=== PATIENT | male | born 1945 | race Two or more races ===

== ENCOUNTER → 2016-08-14 | Outpatient (CLI) | payer OTHER, MEDICARE | LOC: SBRMNEURO 21:00 → MERGE 21:00 | PROVIDERS: ATTEND Psychiatry & Neurology Sleep Medicine | DX: G47.33 Obstructive sleep apnea (adult) (pediatric) (principal); G47.61 Periodic limb movement disorder ==

== ENCOUNTER 2017-05-24 09:23 | Day surgery (SDC) | payer OTHER, MEDICARE ==
[2017-05-24] MEDS ORDERED: NS 1,000 ML IV ONE (09:29)
[2017-05-24] MEDS ORDERED: ATROPINE SULFATE 1 MG/10 ML SYR IVP ONE (09:29)
--- NOTE | 2017-05-24 09:47 | CPEKG ---
Heart Rate: 77 RR Interval: 779 QRSD Interval: 172 QT Interval: 500 QTC Interval: 567 QRS [place]: -104 T Wave [place]: 68 EKG Severity - ABNORMAL ECG - EKG Impression: AFIB/FLUT AND V-PACED COMPLEXES EKG Impression: RIGHT BUNDLE BRANCH BLOCK Electronically Signed By: Dipesh Salazar 24-May-2017 17:39:39
[2017-05-24 10:07] LABS: INR 1.1 (0.83-1.16); PROTIME(PATIENT) 14.4 SEC (12.0-15.0)
--- NOTE | 2017-05-24 11:00 | PDANEPAE ---
ANE History of Present Illness 71 yo male with Afib and low energy for FRANCES/CV. ANE Past Medical History - Cardiovascular History Hx Hypertension: Yes Hx Arrhythmias: Yes Hx Chest Pain: Yes Hx Coronary Artery / Peripheral Vascular Disease: No Hx CHF / Valvular Disease: Yes Cardiovascular History Comment: AFib since February, on Eliquis one month with no missed doses. Amyloidosis with subsequent CHF, need for PM. - Pulmonary History Hx COPD: No Hx Asthma/Reactive Airway Disease: No Hx Recent Upper Respiratory Infection: No Hx Oxygen in Use at Home: No Hx Sleep Apnea: Yes Pulmonary History Comment: No recent cough/fever/colds. On CPAP with supplemental O2 at night. 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 Pt has recovered some renal function, no longer on dialysis , but does have CRI. - Liver History Hx Hepatic Disorders: No - GI History GERD: mild (GERD since starting Eliquis, on 75 mg Zantac daily to control) - Chronic Pain History Chronic Pain: No ANE Review of Systems Review of Systems: - Systems Constitutional: Reports: other (fatigue) Respiratory: Reports: no symptoms ANE Patient History - Allergies Allergies/Adverse Reactions: HORSERADISH Allergy (Uncoded 05/28/12 11:17) Rash - Home Medications Home Medications: Acyclovir 05/24/17 [Last Taken Unknown] Allopurinol 05/24/17 [Last Taken Unknown] Aspirin 81 mg PO DAILY 05/24/17 [Last Taken 05/24/17 07:30] Atorvastatin Calcium 05/24/17 [Last Taken Unknown] Budesonide 05/24/17 [Last Taken Unknown] Calcium Magnesium Caplet 05/24/17 [Last Taken Unknown] Carvedilol 18 mg PO BID 05/24/17 [Last Taken 05/24/17 07:30] Cholestyramine Packet 05/24/17 [Last Taken Unknown] Eliquis 2.5 mg PO BID 05/24/17 [Last Taken 05/24/17 07:30] Furosemide 05/24/17 [Last Taken Unknown] Glucosamine Chondroitin Caplet 05/24/17 [Last Taken Unknown] Levoxyl 05/24/17 [Last Taken Unknown] Mirtazapine 05/24/17 [Last Taken Unknown] Multivitamins 05/24/17 [Last Taken Unknown] [place]-3 Acid Ethyl Esters 05/24/17 [Last Taken Unknown] Potassium Cl 05/24/17 [Last Taken Unknown] Tamsulosin HCl 05/24/17 [Last Taken Unknown] Zolpidem Tartrate 05/24/17 [Last Taken Unknown] Zyrtec 05/24/17 [Last Taken Unknown] - NPO status NPO Status: no food or drink >8 hours (except for a sip of water with meds at 7: 30 AM) - Anes Hx Anes Hx: no prior problems - Smoking Hx Smoking Status: Never smoked Marijuana use: No - Alcohol Use Alcohol Use: None - Family Anes Hx Family Anes Hx: neg - N/A ANE Labs/Vital Signs - Labs Result Diagrams: 05/24/17 09:49 - Vital Signs Blood Pressure: 140/82 Heart Rate: 66 O2 Sat (%): 97 Height: 165 cm Weight: 76.2 kg ANE Physical Exam - Airway Neck exam: FROM Mallampati Score: Class 2 - Cardiovascular Cardiovascular: irregularly irregular - ASA Status ASA Status: III ANE Anesthesia Plan Anesthesia Plan: GA with mask Total IV Anesthesia: Yes
[2017-05-24 11:02] VITALS: BP 140/82; PULSE 66; O2SAT 97
[2017-05-24] MEDS ORDERED: LIDOCAINE 2% 5 ML SDV ONE (11:04)
[2017-05-24] MEDS ORDERED: PROPOFOL 200 MG/20 ML VIAL ONE (11:04)
--- NOTE | 2017-05-24 11:13 | PDHPUP ---
History & Physical Update H&P update statement: This history and physical update is based on an assessment of the patient which was completed after admission or registration (within 24 hours), but prior to the surgery/procedure. H&P update: H&P reviewed & patient examined H&P changes: patient had one episode of hematemesis. Went to see GI MD as out- pt and GI bleed ruled out. No change in cardiac symptoms. Plan for FRANCES/CV today with [employer] Pacer rep here to interrogate PPM jacqueline-procedure.
[2017-05-24] MEDS ORDERED: NALOXONE HCL 0.4 MG/ML INJ IVP PRN (11:33)
--- NOTE | 2017-05-24 11:37 | POSTANESTH ---
Post Anesthetic Evaluation Cardiovascular Status: Similar to Pre-Op Cond Respiratory Status: Normal, Stable Level of Consciousness/Mental Status: Can Participate in Eval, Mildly Sleepy, Arousable (At 12:06.) Pain Control: Adequate, Prn Tx Ordered Nausea/Vomiting Control: Adequate, Prn Tx Ordered Complications Possibly Related to Anesthesia: None Noted
--- NOTE | 2017-05-24 11:42 | PDTEE1 ---
FRANCES Cardioversion Procedure Procedure: electrical cardioversion, transesophageal echo Indications: atrial fibrillation, cardiomyopathy Consent: signed and in chart Anticoagulation: eliquis Procedural Details: Pads were placed in anterior-posterior position. FRANCES probe was advanced and standard images obtained. There is no evidence of left atrial or left atrial appendage thrombus. see seperate FRANCES procedure noted CV: in initially paced rhythm with underlying atrial flutter. After FRANCES showed no cardiac clot, 250J synchronized converted immediately to NSR. Then some PACs and into atach. Still sedated. Given ATP on his device and converted him to NSR and staying in sinus now. PLAN: 1)no change in current meds. 2)f/u New consult- RYAN-Zuleyma next Sunday in [place] to discuss future treatment of his aflutter and atach both ablation and anti-arrhythmics. 3)f/u CHF-[facility] in 3-4 weeks. Synchronized cardioversion attempt #1: other (250 J synchronized) Results: normal sinus rhythm Conclusions: successful FRANCES cardioversion
--- NOTE | 2017-05-24 11:45 | CPEKG ---
Heart Rate: 62 RR Interval: 968 P-R Interval: 200 QRSD Interval: 180 QT Interval: 512 QTC Interval: 520 P [place]: 15 QRS [place]: 106 T Wave [place]: -66 EKG Severity - ABNORMAL ECG - EKG Impression: ATRIAL-SENSED VENTRICULAR-PACED RHYTHM EKG Impression: PACING IS NEW IN COMPARISON TO PRIOR Electronically Signed By: Dipesh Salazar 24-May-2017 17:40:07
--- NOTE | 2017-05-24 13:49 | CPR ---
[f rep st] NONINVASIVE CARDIAC PROCEDURE REPORT DATE OF PROCEDURE: 05/24/2017 PROCEDURE PERFORMED: Electrical cardioversion. INDICATIONS: Known cardiac amyloidosis with atrial fibrillation and increased tiredness. CONSENT: Signed. Risks, benefits, and alternatives discussed with patient and his . They wishe d to proceed. DESCRIPTION OF PROCEDURE AND RESULTS: The patient immediately beforehand had a transesophageal echo which demonstrated a stable LVEF at 30% with moderate mitral regurgitation, but no clot or thrombus s een in any of the 4 cardiac chambers or left atrial appendage. He was in a paced rhythm with underly ing A-flutter with a heart rate of 80 beats per minute with a blood pressure of 148/80. While deeply sedated, he had a 250 joule synchronized shock which converted him back to sinus rhythm. Of note, t he [employer] pacer rep was here during the whole procedure and we were monitoring his pacemaker with a wand over the chest. After about 4-5 minutes in sinus rhythm, he started having PACs and went back into an atrial tachycardia. We burst paced him at 150 beats per minute which converted him back int o sinus rhythm. He was still asleep during this. He remained in sinus rhythm through the rest of th e procedure. He awoke from the procedure with no new neurological deficits. COMPLICATIONS: None. FINAL IMPRESSION: Successful cardioversion of atrial flutter to sinus rhythm requiring 1 mechanical shock and 1 burst pacing. Note, the patient will be discharged home in an hour and continue on his home medications including r enal-dose Eliquis. He will see Dr. Brian Amor with our electrophysiology service of the [facility] in 1 week to talk about possible treatments including ablation and anti-arrhythmic, should he h ave recurrent atrial tachycardias. /[id number]/MODL
--- NOTE | 2017-05-25 12:56 | ECHO ---
[email or web address] [id number] Main: [phone] Fax: Transesophageal Echocardiography Name: KEKE CASSIDY MR#: [id number] Study Date: 05/24/2017 Study Time: 10:37 AM Date of : 1945 Age: 71 year(s) Height: ( ) Weight: ( ) BSA: Gender: Male Examination: FRANCES Indication: Pre Cardioversion Image Quality: Contrast: Requested by: Kale Nielsen Heart Rate: Rhythm: BP: / Procedure Staff Printed Forms Proofreader: Trevor Goncalves RDCS Reading Physician: Kale Nielsen MD Requesting Provider: Printed Forms Proofreader: Reading Physician: Kale Nielsen MD Requesting Provider: FRANCES Exam Details Measurements: Chambers Valvular Assessment AV/MV Valvular Assessment TV/PV Normal Normal Normal Name Value Range Name Value Range Name Value Range Visual EF: 30 % Additional Measurements: Findings: Left Ventricle: The ejection fraction is visually estimated to be 30 %. Right Ventricle: There is a pacemaker lead noted in the right ventricle. Left Atrium: An agitated saline study was performed and was negative for intracardiac shunting. Left Atrial Appendage: There is spontanious contrast with no evidence of thrombus in the left atrial appendage.. Mitral Valve: Moderate mitral valve regurgitation is present. Patient: KEKE CASSIDY Study Date: 05/24/2017 Page 1 of 2 10:37 AM Aortic Valve: The aortic valve is tri-leaflet. Mild aortic valve regurgitation is present. Tricuspid Valve: The tricuspid valve appears normal. Pulmonic Valve: Mild pulmonic valve regurgitation is noted. Aorta: The aorta is normal. Pericardium: No pericardial effusion. l1n (No Signature Object) Patient: KEKE CASSIDY Study Date: 05/24/2017 Page 2 of 2 10:37 AM [id number]
== END 2017-05-24 12:52 | disposition home or self-care (01) ==
LOC: FCATH 09:23
PROVIDERS: ATTEND Internal Medicine Cardiovascular Disease
PROC: 5A2204Z Restoration of Cardiac Rhythm, Single (ICD-10-PCS; principal; 2017-05-24)
PROC: B245ZZ4 Ultrasonography of Left Heart, Transesophageal (ICD-10-PCS; principal; 2017-05-24)
DX: I48.91 Unspecified atrial fibrillation (principal); I48.92 Unspecified atrial flutter; I43 Cardiomyopathy in diseases classified elsewhere; E85.4 Organ-limited amyloidosis; R53.83 Other fatigue; R06.02 Shortness of breath; K92.0 Hematemesis; N18.9 Chronic kidney disease, unspecified; G47.33 Obstructive sleep apnea (adult) (pediatric); I50.9 Heart failure, unspecified; I25.10 Atherosclerotic heart disease of native coronary artery without angina pectoris; E03.9 Hypothyroidism, unspecified; Z82.49 Family history of ischemic heart disease and other diseases of the circulatory system; Z79.83 Long term (current) use of bisphosphonates; Z95.810 Presence of automatic (implantable) cardiac defibrillator
CPT/HCPCS: J0461; J2704

== ENCOUNTER → 2017-06-25 | Outpatient (CLI) | payer OTHER, MEDICARE | LOC: FIMAGING 10:46 | PROVIDERS: ATTEND Internal Medicine Cardiovascular Disease | DX: J40 Bronchitis, not specified as acute or chronic (principal); I51.7 Cardiomegaly; Z95.0 Presence of cardiac pacemaker ==

== ENCOUNTER 2017-07-12 06:48 | Day surgery (SDC) | payer OTHER, MEDICARE ==
[2017-07-12] MEDS ORDERED: ATROPINE SULFATE 1 MG/10 ML SYR IVP ONE (06:52)
[2017-07-12] MEDS ORDERED: NS 500 ML IV ONE (06:52)
[2017-07-12] MEDS ORDERED: BENZOCAINE UNIT DOSE SPRAY HURRICAINE MM ONE (06:52)
[2017-07-12] MEDS ORDERED: fentaNYL 100 MCG/2 ML INJ IVP ONE (06:52)
[2017-07-12] MEDS ORDERED: MIDAZOLAM 2 MG/2 ML VIAL IVP ONE (06:52)
--- NOTE | 2017-07-12 07:06 | CPEKG ---
Heart Rate: 66 RR Interval: 909 P-R Interval: 252 QRSD Interval: 210 QT Interval: 528 QTC Interval: 554 P [place]: 166 QRS [place]: 102 T Wave [place]: -29 EKG Severity - ABNORMAL ECG - EKG Impression: ATRIAL-SENSED VENTRICULAR-PACED COMPLEXES EKG Impression: FIRST DEGREE AV BLOCK EKG Impression: No significant change from May 24, 2017 Electronically Signed By: Bandar Marks 12-Jul-2017 11:00:18
[2017-07-12 07:39] LABS: INR 2.37 (0.83-1.16); PROTIME(PATIENT) 25.9 SEC (12.0-15.0)
--- NOTE | 2017-07-12 08:27 | PDHPUP ---
History & Physical Update H&P update statement: This history and physical update is based on an assessment of the patient which was completed after admission or registration (within 24 hours), but prior to the surgery/procedure. H&P update: H&P reviewed & patient examined, no change in patient's condition since H&P completed
[2017-07-12] MEDS ORDERED: PROPOFOL 200 MG/20 ML VIAL ONE (09:52)
[2017-07-12] MEDS ORDERED: PERFLUTREN LIPID MICROSPHERES 1.1 MG/ML VIAL IV ONE (10:08)
--- NOTE | 2017-07-12 10:20 | EPPROC ---
Electrophysiology Procedure Note: The pt's FRANCES demonstrated very low flow in the appendage and LA clot could not be definitively ruled out.Hence it was decided to hold off on CV. Will reschedule after four weeks of consistent INR.
[2017-07-12] MEDS ORDERED: NALOXONE HCL 0.4 MG/ML INJ IVP PRN (10:27)
[2017-07-12] MEDS ORDERED: PROMETHAZINE HCL 25 MG/ML INJ IVP PRN (10:27)
[2017-07-12] MEDS ORDERED: ONDANSETRON 4 MG/2 ML VIAL IVP PRN (10:27)
[2017-07-12] MEDS ORDERED: fentaNYL 100 MCG/2 ML INJ IVP PRN (10:27)
--- NOTE | 2017-07-12 10:27 | PDANEPAE ---
ANE Past Medical History - Cardiovascular History Hx Hypertension: Yes Hx Arrhythmias: Yes Hx Chest Pain: Yes Hx Coronary Artery / Peripheral Vascular Disease: No Hx CHF / Valvular Disease: Yes Cardiovascular History Comment: AFib since February, on Eliquis one month with no missed doses. Amyloidosis with subsequent CHF, need for PM. - Pulmonary History Hx COPD: No Hx Asthma/Reactive Airway Disease: No Hx Recent Upper Respiratory Infection: No Hx Oxygen in Use at Home: No Hx Sleep Apnea: Yes Pulmonary History Comment: No recent cough/fever/colds. On CPAP with supplemental O2 at night. 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 Pt has recovered some renal function, no longer on dialysis , but does have CRI. - Liver History Hx Hepatic Disorders: No - Chronic Pain History Chronic Pain: No ANE Review of Systems Review of Systems: ANE Patient History - Allergies Allergies/Adverse Reactions: HORSERADISH Allergy (Uncoded 05/28/12 11:17) Rash - Home Medications Home Medications: Acyclovir 05/24/17 [Last Taken Unknown] Allopurinol 05/24/17 [Last Taken Unknown] Aspirin 81 mg PO DAILY 05/24/17 [Last Taken 05/24/17 07:30] Atorvastatin Calcium 05/24/17 [Last Taken Unknown] Budesonide 05/24/17 [Last Taken Unknown] Calcium Magnesium Caplet 05/24/17 [Last Taken Unknown] Carvedilol 18 mg PO BID 05/24/17 [Last Taken 05/24/17 07:30] Cholestyramine Packet 05/24/17 [Last Taken Unknown] Eliquis 2.5 mg PO BID 05/24/17 [Last Taken 05/24/17 07:30] Furosemide 05/24/17 [Last Taken Unknown] Glucosamine Chondroitin Caplet 05/24/17 [Last Taken Unknown] Levoxyl 05/24/17 [Last Taken Unknown] Mirtazapine 05/24/17 [Last Taken Unknown] Multivitamins 05/24/17 [Last Taken Unknown] [place]-3 Acid Ethyl Esters 05/24/17 [Last Taken Unknown] Potassium Cl 05/24/17 [Last Taken Unknown] Tamsulosin HCl 05/24/17 [Last Taken Unknown] Zolpidem Tartrate 05/24/17 [Last Taken Unknown] Zyrtec 05/24/17 [Last Taken Unknown] - Anes Hx Anes Hx: no prior problems - Smoking Hx Smoking Status: Never smoked ANE Labs/Vital Signs - Labs Result Diagrams: 07/12/17 07:15 - Vital Signs Height: 165 cm Weight: 74.8 kg ANE Physical Exam - Airway Mallampati Score: Class 2 Mouth exam: normal dental/mouth exam - Pulmonary Pulmonary: no respiratory distress, no rales or rhonchi, clear to auscultation - Cardiovascular Cardiovascular: regular rate and rhythym - ASA Status ASA Status: III ANE Anesthesia Plan Anesthesia Plan: GA with mask
--- NOTE | 2017-07-12 10:28 | POSTANESTH ---
Post Anesthetic Evaluation Cardiovascular Status: Similar to Pre-Op Cond Respiratory Status: Normal, Stable, Similar to Pre-op Cond. Level of Consciousness/Mental Status: Can Participate in Eval, Mildly Sleepy, Arousable Pain Control: Adequate, Prn Tx Ordered Nausea/Vomiting Control: Adequate, Prn Tx Ordered Complications Possibly Related to Anesthesia: None Noted
== END 2017-07-12 11:46 | disposition home or self-care (01) ==
LOC: FCATH 06:48
PROVIDERS: ATTEND Internal Medicine Cardiovascular Disease
PROC: B245ZZ4 Ultrasonography of Left Heart, Transesophageal (ICD-10-PCS; principal; 2017-07-12)
DX: I48.91 Unspecified atrial fibrillation (principal); E85.4 Organ-limited amyloidosis; I42.9 Cardiomyopathy, unspecified; R53.83 Other fatigue; R06.02 Shortness of breath; I50.22 Chronic systolic (congestive) heart failure; I44.0 Atrioventricular block, first degree; I25.10 Atherosclerotic heart disease of native coronary artery without angina pectoris; E03.9 Hypothyroidism, unspecified; N18.9 Chronic kidney disease, unspecified; I43 Cardiomyopathy in diseases classified elsewhere; G47.33 Obstructive sleep apnea (adult) (pediatric); I12.9 Hypertensive chronic kidney disease with stage 1 through stage 4 chronic kidney disease, or unspecified chronic kidney disease; Z79.01 Long term (current) use of anticoagulants; Z82.49 Family history of ischemic heart disease and other diseases of the circulatory system; Z95.810 Presence of automatic (implantable) cardiac defibrillator; Z53.09 Procedure and treatment not carried out because of other contraindication
CPT/HCPCS: J0461; J2704; Q9957

== ENCOUNTER 2017-07-26 06:18 | Day surgery (SDC) | payer OTHER, MEDICARE ==
[2017-07-26] MEDS ORDERED: ATROPINE SULFATE 1 MG/10 ML SYR IVP ONE (06:22)
[2017-07-26] MEDS ORDERED: BENZOCAINE UNIT DOSE SPRAY HURRICAINE MM ONE (06:22)
[2017-07-26] MEDS ORDERED: NS 500 ML IV ONE (06:22)
[2017-07-26] MEDS ORDERED: MIDAZOLAM 2 MG/2 ML VIAL IVP ONE (06:22)
[2017-07-26] MEDS ORDERED: fentaNYL 100 MCG/2 ML INJ IVP ONE (06:22)
--- NOTE | 2017-07-26 06:35 | CPEKG ---
Heart Rate: 71 RR Interval: 845 P-R Interval: 205 QRSD Interval: 188 QT Interval: 536 QTC Interval: 583 P [place]: 0 QRS [place]: 98 T Wave [place]: -53 EKG Severity - ABNORMAL ECG - EKG Impression: VENTRICULAR-PACED RHYTHM EKG Impression: PROLONGED QTc INTERVAL. Electronically Signed By: Kale Nielsen 26-Jul-2017 15:47:09
[2017-07-26 06:53] LABS: INR 1.85 (0.83-1.16); PROTIME(PATIENT) 21.4 SEC (12.0-15.0)
--- NOTE | 2017-07-26 08:22 | PDANEPAE ---
ANE History of Present Illness Patient presents for FRANCES, cardioversion ANE Past Medical History - Cardiovascular History Hx Hypertension: Yes Hx Arrhythmias: Yes Hx Chest Pain: Yes Hx Coronary Artery / Peripheral Vascular Disease: No Hx CHF / Valvular Disease: Yes Cardiovascular History Comment: AFib since February, on Eliquis one month with no missed doses. Amyloidosis with subsequent CHF, need for PM. - Pulmonary History Hx COPD: No Hx Asthma/Reactive Airway Disease: No Hx Recent Upper Respiratory Infection: No Hx Oxygen in Use at Home: No Hx Sleep Apnea: Yes Pulmonary History Comment: No recent cough/fever/colds. On CPAP with supplemental O2 at night. 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 Pt has recovered some renal function, no longer on dialysis , but does have CRI. - Liver History Hx Hepatic Disorders: No - Chronic Pain History Chronic Pain: No ANE Review of Systems Review of Systems: ANE Patient History - Allergies Allergies/Adverse Reactions: HORSERADISH Allergy (Uncoded 05/28/12 11:17) Rash - Home Medications Home medications: home medication list seen and reviewed Home Medications: Acyclovir 05/24/17 [Last Taken Unknown] Allopurinol 05/24/17 [Last Taken Unknown] Aspirin 81 mg PO DAILY 05/24/17 [Last Taken 05/24/17 07:30] Atorvastatin Calcium 05/24/17 [Last Taken Unknown] Budesonide 05/24/17 [Last Taken Unknown] Calcium Magnesium Caplet 05/24/17 [Last Taken Unknown] Carvedilol 18 mg PO BID 05/24/17 [Last Taken 05/24/17 07:30] Cholestyramine Packet 05/24/17 [Last Taken Unknown] Eliquis 2.5 mg PO BID 05/24/17 [Last Taken 05/24/17 07:30] Furosemide 05/24/17 [Last Taken Unknown] Glucosamine Chondroitin Caplet 05/24/17 [Last Taken Unknown] Levoxyl 05/24/17 [Last Taken Unknown] Mirtazapine 05/24/17 [Last Taken Unknown] Multivitamins 05/24/17 [Last Taken Unknown] [place]-3 Acid Ethyl Esters 05/24/17 [Last Taken Unknown] Potassium Cl 05/24/17 [Last Taken Unknown] Tamsulosin HCl 05/24/17 [Last Taken Unknown] Zolpidem Tartrate 05/24/17 [Last Taken Unknown] Zyrtec 05/24/17 [Last Taken Unknown] - NPO status NPO Status: no food or drink >8 hours - Smoking Hx Smoking Status: Never smoked ANE Labs/Vital Signs - Labs Result Diagrams: 07/26/17 06:35 - Vital Signs Height: 163 cm Weight: 74.8 kg ANE Physical Exam - Airway Neck exam: decreased ROM Mallampati Score: Class 2 Mouth exam: normal dental/mouth exam - Pulmonary Pulmonary: no respiratory distress - Cardiovascular Cardiovascular: irregularly irregular - ASA Status ASA Status: III ANE Anesthesia Plan Anesthesia Plan: GA with mask (RBA discussed)
--- NOTE | 2017-07-26 08:22 | PDGENHP ---
History & Physical Chief Complaint: fatigue History of Present Illness: atrial flutter, CRI, amyloidosis, JEB Pertinent Past, Social, Family History: assessed and unchanged Relevant Physical Exam: CTA no rales or rhonchii. S1S2 regular Cardiorespiratory Assessment: Unchanged and normal. OK to proceed
[2017-07-26] MEDS ORDERED: LIDOCAINE 1% 5 ML SDV ONE (08:23)
[2017-07-26] MEDS ORDERED: PROPOFOL 200 MG/20 ML VIAL ONE (08:24)
--- NOTE | 2017-07-26 08:45 | POSTANESTH ---
Post Anesthetic Evaluation Cardiovascular Status: Similar to Pre-Op Cond Respiratory Status: Similar to Pre-op Cond. Level of Consciousness/Mental Status: Can Participate in Eval, Mildly Sleepy, Arousable Pain Control: Adequate, Prn Tx Ordered Nausea/Vomiting Control: Adequate, Prn Tx Ordered Complications Possibly Related to Anesthesia: None Noted
--- NOTE | 2017-07-27 09:49 | EPPROC ---
Electrophysiology Procedure Note: Procedure: CV Indication: Atrial flutter Procedure: Pt sedated. FRANCES performed. SHARON clot ruled out. Pt converted to AP TURRET LATHE OPERATOR rhythm using 200J of synchronized DCCV. Conclusion: Successful CV
== END 2017-07-26 09:55 | disposition home or self-care (01) ==
LOC: FCATH 06:18
PROVIDERS: ATTEND Internal Medicine Cardiovascular Disease
PROC: B245ZZ4 Ultrasonography of Left Heart, Transesophageal (ICD-10-PCS; principal; 2017-07-26)
PROC: 5A2204Z Restoration of Cardiac Rhythm, Single (ICD-10-PCS; principal; 2017-07-26)
DX: I48.92 Unspecified atrial flutter (principal); R53.83 Other fatigue; N18.9 Chronic kidney disease, unspecified; I12.9 Hypertensive chronic kidney disease with stage 1 through stage 4 chronic kidney disease, or unspecified chronic kidney disease; E85.9 Amyloidosis, unspecified; G47.33 Obstructive sleep apnea (adult) (pediatric); I50.9 Heart failure, unspecified; Z79.01 Long term (current) use of anticoagulants; Z95.0 Presence of cardiac pacemaker
CPT/HCPCS: J0461; J2704

== ENCOUNTER 2017-12-21 06:50 | Day surgery (SDC) | payer OTHER, MEDICARE ==
[2017-12-21] MEDS ORDERED: ceFAZolin 2 GM/DEXTROSE 100 ML IV ONE (07:06)
[2017-12-21] MEDS ORDERED: LIDOCAINE 1% 2 ML INJ ID PRN (07:08)
[2017-12-21] MEDS ORDERED: LR 1,000 ML IV ONE (07:08)
[2017-12-21 07:48] LABS: PLATELET COUNT 177 10^3/uL (150-400)
[2017-12-21 07:55] LABS: INR 1.01 (0.83-1.16); PROTIME(PATIENT) 13.5 SEC (12.0-15.0)
--- NOTE | 2017-12-21 08:44 | PDANEPAE ---
ANE History of Present Illness L AVF ligation ANE Past Medical History - Cardiovascular History Hx Hypertension: Yes Hx Arrhythmias: Yes Hx Chest Pain: No Hx Coronary Artery / Peripheral Vascular Disease: No Hx CHF / Valvular Disease: Yes Hx Palpitations: No Cardiovascular History Comment: afib. cardiac amyloidosis. cardiomyopathy-low EF. chf. complete heart block. cad. followed by [facility] - Pulmonary History Hx COPD: No Hx Asthma/Reactive Airway Disease: No Hx Recent Upper Respiratory Infection: No Hx Oxygen in Use at Home: Yes O2 in Use at Home (L/minute): 2l at noc with cpap Hx Sleep Apnea: Yes Sleep Apnea Screening Result - Last Documented: Positive Pulmonary History Comment: janneth positive uses cpap- instructed pt to bring to hospital - Neurologic History Hx Cerebrovascular Accident: No Hx Seizures: No Hx Dementia: No - Endocrine History Hx Diabetes: No Endocrine History Comment: hypothyroidism. thyroid removed at 13 yo - Renal History Hx Renal Disorders: Yes Renal History Comment: hx of dialysis in 2012 for 8-9 months. CRI. ESRD - Liver History Hx Hepatic Disorders: No - Neurological & Psychiatric Hx Hx Neurological and Psychiatric Disorders: No - Cancer History Hx Cancer: Yes Cancer History Comment: [place]. multiple myeloma - Congenital Disorder History Hx Congenital Disorders: No - GI History Hx Gastrointestinal Disorders: Yes Gastrointestinal History Comment: colitis - Other Health History Other Health History: wears contacts. skin is fragile d/t coumadin - Chronic Pain History Chronic Pain: No - Surgical History Prior Surgeries: 07/26/17 FRANCES/ CV with Zuleyma. 07/12/17 FRANCES with Zuleyma. 05/24/17 FRANCES with Gia. 07/23/12 revision of AVF with Maurisio. 05/30/12 AVF creation with Maurisio ROJO Review of Systems Review of Systems: - Exercise capacity METS (RN): 3 METS - Pacemaker Pacemaker Type: Permanent Pacer/Defib Pacemaker Family Support Worker: [employer] Pacemaker Model: Adapta ADDR01 Pacemaker Mode: DDDR Pacemaker Set Rate: 60 Date Pacemaker Last Checked: 07/27/17 ANE Patient History - Allergies Allergies/Adverse Reactions: HORSERADISH Allergy (Uncoded 12/20/17 17:18) Rash - Home Medications Home medications: home medication list seen and reviewed Home Medications: Acyclovir 05/24/17 [Last Taken 12/20/17] Allopurinol 05/24/17 [Last Taken 12/21/17] Aspirin 05/24/17 [Last Taken 12/20/17] Atorvastatin Calcium 05/24/17 [Last Taken 12/21/17] Budesonide 05/24/17 [Last Taken 12/20/17] Calcium Magnesium Caplet 05/24/17 [Last Taken 12/20/17] Carvedilol 05/24/17 [Last Taken 12/20/17] Cholestyramine Packet 05/24/17 [Last Taken 12/19/17] Furosemide 05/24/17 [Last Taken 12/20/17] Glucosamine Chondroitin Caplet 05/24/17 [Last Taken 12/20/17] Levoxyl 05/24/17 [Last Taken 12/20/17] Mirtazapine 05/24/17 [Last Taken 12/20/17] Multivitamins 05/24/17 [Last Taken 12/20/17] Potassium Cl 05/24/17 [Last Taken 12/20/17] Tamsulosin HCl 05/24/17 [Last Taken 12/20/17] Zolpidem Tartrate 05/24/17 [Last Taken 12/20/17] Zyrtec 05/24/17 [Last Taken 12/20/17] Coumadin 07/26/17 [Last Taken 12/15/17] Amiodarone HCl 12/20/17 [Last Taken 12/21/17] Spironolactone 12/20/17 [Last Taken 12/20/17] Tylenol ES 500 mg (*) 12/20/17 [Last Taken Unknown] - NPO status NPO Status: no food or drink >8 hours NPO Since - Liquids (Date): 12/20/17 NPO Since - Liquids (Time): 20:20 NPO Since - Solids (Date): 12/20/17 NPO Since - Solids (Time): 19:00 - Anes Hx Anes Hx: no prior problems - Smoking Hx Smoking Status: Never smoked Marijuana use: No - Alcohol Use Alcohol Use: None - Family Anes Hx Family Anes Hx: none Family Hx Anesthesia Complications: none ANE Labs/Vital Signs - Labs Result Diagrams: 12/21/17 07:30 12/21/17 07:30 - Vital Signs Blood Pressure: 133/82 Heart Rate: 60 Respiratory Rate: 20 O2 Sat (%): 95 Height: 165.1 cm Weight: 77.111 kg ANE Physical Exam - Airway Neck exam: decreased ROM Mallampati Score: Class 2 Mouth exam: poor dentition - Pulmonary Pulmonary: inspiratory crackles - Cardiovascular Cardiovascular: regular rate and rhythym - ASA Status ASA Status: IV ANE Anesthesia Plan Anesthesia Plan: GA with mask, MAC Total IV Anesthesia: Yes
[2017-12-21] MEDS ORDERED: THROMBIN (BOVINE) 20,000 UNIT SPRAY TP ONE (08:50)
[2017-12-21] MEDS ORDERED: PROTAMINE SULFATE 50 MG/5 ML VIAL IVP ONE (08:51)
[2017-12-21] MEDS ORDERED: BUPIVACAINE 0.5% 30 ML SDV ONE (08:51)
[2017-12-21] MEDS ORDERED: PAPAVERINE HCL 60 MG/2 ML SDV ONE (08:51)
[2017-12-21] MEDS ORDERED: THROMBIN (BOVINE) 5,000 UNIT VIAL TP ONE (08:51)
[2017-12-21] MEDS ORDERED: PROPOFOL/EMULSION 500 MG/50 ML BOTTLE IV ONE (09:12)
[2017-12-21] MEDS ORDERED: fentaNYL 100 MCG/2 ML INJ ONE (09:12)
[2017-12-21] MEDS ORDERED: LIDOCAINE 2% 100 MG/5 ML SYR ONE ×2 (09:14)
[2017-12-21] MEDS ORDERED: LIDOCAINE 1% 300 MG/30 ML SDV ONE (09:20)
[2017-12-21] MEDS ORDERED: ACETAMINOPHEN 500 MG TAB PO PRN (09:49)
[2017-12-21] MEDS ORDERED: fentaNYL 100 MCG/2 ML INJ IVP PRN (09:49)
[2017-12-21] MEDS ORDERED: LABETALOL HCL 5 MG/ML 20 ML MDV IVP PRN (09:49)
[2017-12-21] MEDS ORDERED: ALBUTEROL 3 ML DEYVIAL IH PRN (09:49)
[2017-12-21] MEDS ORDERED: LR 500 ML IV PRN (09:49)
[2017-12-21] MEDS ORDERED: ONDANSETRON 4 MG/2 ML VIAL IVP PRN (09:49)
[2017-12-21] MEDS ORDERED: NALOXONE HCL 0.4 MG/ML INJ IVP PRN (09:49)
[2017-12-21] MEDS ORDERED: DEXAMETHASONE 4 MG/ML VIAL IVP PRN (09:49)
[2017-12-21] MEDS ORDERED: PHENYLEPHRINE HCL 100 MCG/ML SYR IVP PRN (09:49)
--- NOTE | 2017-12-21 10:02 | POSTOPPROG ---
Post Op Note Date of Operation: 12/21/17 Surgeon: Steven Forde Federal Mediation Commissioner: Haylee Anesthesiologist: Bhupinder Anesthesia: GET(General Endotracheal) Pre-op Diagnosis: Chronic kidney disease Post-op Diagnosis: same Indication: No longer needs dialysis Procedure: LUE AVF ligation Findings: absence of thrill in AVF after ligation Inf/Abcess present in the surg proc area at time of surgery?: No Depth: Superfical (Skin SQ) EBL: Minimal
[2017-12-21 11:17] VITALS: BP 132/88
--- NOTE | 2017-12-21 13:26 | POSTANESTH ---
Post Anesthetic Evaluation Cardiovascular Status: Normal, Stable Respiratory Status: Similar to Pre-op Cond., Tx Decrease in SpO2 Level of Consciousness/Mental Status: Can Participate in Eval Pain Control: Adequate, Prn Tx Ordered Nausea/Vomiting Control: Adequate, Prn Tx Ordered Complications Possibly Related to Anesthesia: None Noted
--- NOTE | 2017-12-24 12:23 | GOP ---
DATE OF OPERATION: 12/21/2017 SURGEON: Steven Forde MD STEEL WHEEL ENGRAVER: Michelle Leach NP ANESTHESIOLOGIST: Richi Roe MD PREOPERATIVE DIAGNOSIS: Renal failure and congestive heart failure. POSTOPERATIVE DIAGNOSIS: Renal failure and congestive heart failure. PROCEDURE PERFORMED: Ligation of left arm radiocephalic arteriovenous fistula. FINDINGS: RESOLUTION OF AVF FLOW INDICATIONS: The patient no longer needs dialysis and was thought to have congestive heart failure contributed to by the AV fistula flow. DESCRIPTION OF PROCEDURE: The patient was taken to the operating room where he received IV sedation and monitored anesthesia care by Dr. Roe. He was placed in the supine position with the left arm outstretched on an arm board. He was prepped and draped in the usual sterile fashion. A longitudinal incision was made through the previous old scar. Dissection was carried down, and the venous portion of the fistula was dissected free, back to almost to the anastomosis. At that point, the vein was encircled with a 2-0 silk and was doubly ligated with 2-0 silks with care to avoid any compromise to the radial artery flow. This did completely abolish the fistula flow. The wound was then closed with 4-0 Monocryl subcuticular sutures and infiltrated with 0.5% Marcaine. He tolerated the procedure well. Blood loss negligible. No complications. Taken to the recovery room in good condition. /[id number]/MODL MTDD
== END 2017-12-21 13:00 | disposition home or self-care (01) ==
LOC: FSGY 06:50
PROVIDERS: ATTEND Surgery
PROC: 05LY0CZ Occlusion of Upper Vein with Extraluminal Device, Open Approach (ICD-10-PCS; principal; 2017-12-21 08:30)
DX: I77.0 Arteriovenous fistula, acquired (principal); I13.0 Hypertensive heart and chronic kidney disease with heart failure and stage 1 through stage 4 chronic kidney disease, or unspecified chronic kidney disease; N18.9 Chronic kidney disease, unspecified; I50.9 Heart failure, unspecified; E85.9 Amyloidosis, unspecified; Z79.01 Long term (current) use of anticoagulants; Z95.0 Presence of cardiac pacemaker; G47.33 Obstructive sleep apnea (adult) (pediatric); E03.9 Hypothyroidism, unspecified
CPT/HCPCS: J0690; J1644; J2001; J2440; J2704; J2720; J3010

== ENCOUNTER 2018-03-03 12:58 | Emergency (ER) | payer OTHER, MEDICARE ==
--- NOTE | 2018-03-03 13:48 | EDPHY ---
H & P Stated Complaint: Left Calf Injury - Worried about infection - Personal History Current Tetanus Diphtheria and Acellular Pertussis (TDAP): Yes Tetanus Vaccine Date: <10 YRS - Medical/Surgical History Hx Asthma: No Hx Chronic Respiratory Disease: No Hx Diabetes: No Hx Cardiac Disease: Yes Hx Renal Disease: Yes Hx Cirrhosis: No Hx Alcoholism: Yes Hx HIV/AIDS: No Hx Splenectomy or Spleen Trauma: No Other PMH: CHF, Pacemaker, CKD stage 4 - Social History Smoking Status: Never smoked Time Seen by Provider: 03/03/18 13:48 Constitutional: Initial Vital Signs Temperature (C) 97.9 F 03/03/18 13:06 Heart Rate 75 03/03/18 13:06 Respiratory Rate 18 03/03/18 13:06 Blood Pressure 122/82 H 03/03/18 13:06 O2 Sat (%) 100 03/03/18 13:06 O2 Delivery Mode Room Air Allergies/Adverse Reactions: HORSERADISH Allergy (Uncoded 12/20/17 17:18) Rash Home Medications: Medication Instructions Recorded Acyclovir 05/24/17 Allopurinol 05/24/17 Aspirin 05/24/17 Atorvastatin Calcium 05/24/17 Budesonide 05/24/17 Calcium Magnesium Caplet 05/24/17 Carvedilol 05/24/17 Cholestyramine Packet 05/24/17 Furosemide 05/24/17 Glucosamine Chondroitin Caplet 05/24/17 Levoxyl 05/24/17 Mirtazapine 05/24/17 Multivitamins 05/24/17 Potassium Cl 05/24/17 Tamsulosin HCl 05/24/17 Zolpidem Tartrate 05/24/17 Zyrtec 05/24/17 Coumadin 07/26/17 Amiodarone HCl 12/20/17 Spironolactone 12/20/17 Tylenol ES 500 mg (*) 12/20/17 Sulfamethox/Tmp 800/160 mg 1 tab PO BID #14 tab 03/03/18 [Bactrim Ds] Medical Decision Making Procedures: My involvement the care this patient is solely for procedure. Please see the note of the attending physician for all other aspects of care. I was asked evaluate this patient due to a left anterior garcía hematoma evacuation. PROCEDURE: Incision and Drainage Consent: Verbal Location: Left anterior garcía hematoma Length: 3 cm Complexity: Complex Anesthesia: Local. 0.25% marcaine with epinephrine. 7 mL Procedure description: After time-out and good anesthesia, the left garcía was prepped in common sterile fashion with chlorhexidine. Using sterile technique, I made a 3 cm incision and I was able to evacuate any extensive portion of the hematoma. This was copiously irrigated with sterile saline. A nonadherent dressing was replaced. Patient be placed on antibiotics by Dr. Sharp. Expressed: 20 mL hematoma. No purulence. Wound care: Daily as discussed Follow-up: 48 hr wound check. (Arthur Chandra) ED Course/Re-evaluation: CHIEF COMPLAINT: "Got in a fight with a car door and the car won" HISTORY OF PRESENT ILLNESS: The patient is a 72 y/o male with a history of CHF , stage 4 kidney disease, and amyloidosis arriving with his complaining of left lower leg pain, redness, and open sore since getting struck by a car door accidentally 6 days ago. He is normally on Warfarin and developed a large hematoma at the site shortly after the injury. Since then, the swelling and pain worsened and he developed surrounding redness on his anterior leg and dependent ecchymosis in his foot. He saw his PCP on Sunday for this and stopped his anticoagulant at that time. The PCP attempted to draw off some fluid with a needle during that visit and discharged the patient on cephalexin with strict instruction to come to the ED if the redness, swelling, or pain worsened. He has completed 4 doses of this so far. The swelling improved, but the redness and pain has spread. He denies fever, chills, vomiting, or symptoms of systemic illness. REVIEW OF SYSTEMS: A comprehensive 10 system review of systems is otherwise negative aside from elements mentioned in the history of present illness and medical decision making. PHYSICAL EXAM: HR, BP, O2 Sat, RR. Temp noted General Appearance: Alert, well hydrated, appropriate, and non-toxic appearing. Head: Atraumatic without scalp tenderness or obvious injury Eyes: Pupils equal, round, reactive to light and accommodation, EOMI, no trauma , no injection. Nose: Atraumatic, no rhinorrhea, clear. Throat: Mucus membranes moist. Neck: Supple, nontender, no lymphadenopathy. Respiratory: No retractions, no distress, no wheezes, and no accessory muscle use. Lungs are clear to auscultation bilaterally. Cardiovascular: Regular rate and rhythm, no murmurs, rubs, or gallops. Good capillary refill all extremities. Gastrointestinal: Abdomen is soft, nontender, non-distended, no masses, no rebound, no guarding, no peritoneal signs. Musculoskeletal: Left lower anterior leg has large hematoma with area of fluctuance and induration, erythema, tenderness, and overlying and surrounding cellulitis. Normal active ROM of all extremities. Neurological: Alert, appropriate, and interactive. The patient has non-focal cranial nerves, motor, sensory, and cerebellar exam. Skin: No rashes, good turgor, no nodules on palpation. Past medical history: CHF, CKD stage 4, amyloidosis, normally on Warfarin. Past surgical history: Pacemaker Family history: Noncontributory Social history: at bedside. Retired. DIAGNOSTICS/PROCEDURES/CRITICAL CARE TIME: I&D performed by MERCEDEZ Chandra. DIFFERENTIAL DIAGNOSIS: The differential diagnosis for the patient's symptoms included but was not limited to infected hematoma, staph infection, strep infection, superficial clot, and sepsis. MEDICAL DECISION MAKING: This is a 72 y/o male with a history of CHF, CKD, and amyloidosis who presents with an infected hematoma of his left lower extremity. There is a large area of fluctuance and induration with overlying and surrounding cellulitis. Plan for I& D by MERCEDEZ Chandra. Patient will be discharged home on Bactrim in addition to his Keflex with referral to wound clinic for follow up. Strict return precautions discussed. He and his are comfortable with this plan. (Dante Sharp) - Data Points Medications Given: Discontinued Medications Trimethoprim/Sulfamethoxazole (Bactrim Ds) 1 ea PO EDNOW ONE PRN Reason: Protocol Stop: 03/03/18 14:03 Last Admin: 03/03/18 14:15 Dose: 1 ea Departure - Departure Disposition: Home, Routine, Self-Care Clinical Impression: Traumatic hematoma of lower leg with infection Qualifiers: Encounter type: initial encounter Laterality: left Qualified Code(s): S80.12XA - Contusion of left lower leg, initial encounter Cellulitis Qualifiers: Site of cellulitis: extremity Site of cellulitis of extremity: lower extremity Laterality: left Qualified Code(s): L03.116 - Cellulitis of left lower limb Condition: Good Instructions: Cephalexin (By mouth), Sulfamethoxazole/Trimethoprim (By mouth), Cellulitis (ED), Abscess (ED) Additional Instructions: 1. Continue taking the cephalexin you already have. 2. Start taking Bactrim in addition. Be sure to complete both of these antibiotics even if you feel better. 3. Use Tylenol and ibuprofen as directed on the packaging as needed for pain over the next few days. 4. Follow up with the wound care clinic in the next 3-4 days for reevaluation. Keep bandage clean and dry in the mean time. 5. Return to the ED for any worsening of condition including severe pain, fever , chills, or other concerns. Referrals: RICHAR TAYLOR [Primary Care Provider] - As per Instructions [facility] [Clinic] - As per Instructions Prescriptions: Sulfamethox/Tmp 800/160 mg [Bactrim Ds] 1 tab PO BID #14 tab Report Scribed for: Dante Sharp Report Scribed by: Migdalia Bright Date of Report: 03/03/18 Time of Report: 14:10
[2018-03-03] MEDS ORDERED: SULFAMETHOX/TMP 800/160 MG 1 TAB PO ONE (14:02)
[2018-03-03] MEDS ORDERED: HYDROGEN PEROXIDE 236 ML BOTTLE TP ONE (14:12)
[2018-03-03 15:02] VITALS: BP 123/73
[2018-03-05] MEDS ORDERED: fentaNYL 100 MCG/2 ML INJ ONE ×2 (15:54→16:29)
[2018-03-05] MEDS ORDERED: MIDAZOLAM 2 MG/2 ML VIAL ONE (15:54)
== END 2018-03-03 15:01 | disposition home or self-care (01) ==
PROC: 0H9LXZZ Drainage of Left Lower Leg Skin, External Approach (ICD-10-PCS; principal; 2018-03-03)
DX: S80.12XA Contusion of left lower leg, initial encounter (principal); L03.116 Cellulitis of left lower limb; N18.4 Chronic kidney disease, stage 4 (severe); Z95.0 Presence of cardiac pacemaker
CPT/HCPCS: J2250; J3010

== ENCOUNTER 2018-03-05 07:14 | Inpatient (IN) | payer OTHER, MEDICARE ==
--- NOTE | 2018-03-05 07:30 | EDPHY ---
H & P Stated Complaint: L Leg swelling/redness Time Seen by Provider: 03/05/18 07:30 - Personal History Current Tetanus/Diphtheria Vaccine: Yes Current Tetanus Diphtheria and Acellular Pertussis (TDAP): Yes Tetanus Vaccine Date: <10 YRS - Medical/Surgical History Hx Asthma: No Hx Chronic Respiratory Disease: No Hx Diabetes: No Hx Cardiac Disease: Yes Hx Renal Disease: Yes Hx Cirrhosis: No Hx Alcoholism: Yes Hx HIV/AIDS: No Hx Splenectomy or Spleen Trauma: No Other PMH: CHF, Pacemaker, CKD stage 4, afib - Social History Smoking Status: Never smoked Constitutional: Initial Vital Signs Temperature (C) 36.5 C 03/05/18 07:18 Heart Rate 75 03/05/18 07:18 Respiratory Rate 16 03/05/18 07:18 Blood Pressure 103/73 03/05/18 07:18 O2 Sat (%) 93 03/05/18 07:18 O2 Delivery Mode Room Air Allergies/Adverse Reactions: HORSERADISH Allergy (Uncoded 03/05/18 07:18) Rash Home Medications: Medication Instructions Recorded Acyclovir [Zovirax 200 mg (*)] 200 mg PO BID #0 05/24/17 Allopurinol [Allopurinol 100 MG 100 mg PO DAILY #0 05/24/17 (*)] Aspirin [Aspirin 81mg (*)] 81 mg PO HS #0 05/24/17 Atorvastatin Calcium [Lipitor 10 10 mg PO HS #0 05/24/17 mg (*)] Budesonide [Budesonide EC] 6 mg PO DAILY@1630 #0 05/24/17 Carvedilol [Coreg (*)] 18.75 mg PO BIDMEAL #0 05/24/17 Cetirizine [ZyrTEC 10 mg (*)] 10 mg PO DAILY #0 05/24/17 Cholestyramine (with Sugar) 4 gm PO BID #0 05/24/17 [Cholestyramine Packet] Furosemide [Lasix 40 MG (*)] 40 mg PO TID #0 05/24/17 Glucosamine/Chondroitin 1 each PO DAILY #0 05/24/17 [Glucosamine/Chondroitin (*)] Levothyroxine [Synthroid 150 mcg 150 mcg PO DAILY06 #0 05/24/17 (*)] MIRTAZAPINE [Remeron 7.5 mg] 3.75 mg PO HS #0 05/24/17 Multivitamins [Multivitamin (*)] 1 each PO DAILY #0 05/24/17 Potassium Cl [Klor-Con 20 meq (*)] 20 meq PO DAILY #0 05/24/17 Tamsulosin HCl [Flomax 0.4 MG (*)] 0.4 mg PO HS #0 05/24/17 Zolpidem Tartrate [Ambien 5MG (*)] 5 mg PO HS #0 05/24/17 Warfarin Sodium [Coumadin 2.5MG 2.5 mg PO MWF #0 07/26/17 (*)] Acetaminophen [Tylenol ES 500 mg 1,000 mg PO DAILY PRN #0 12/20/17 (*)] Amiodarone HCl [Pacerone (*)] 200 mg PO DAILY #0 12/20/17 Spironolactone [Aldactone 25 MG 12.5 mg PO DAILY #0 12/20/17 (*)] Sulfamethox/Tmp 800/160 mg 1 tab PO BID #14 tab 03/03/18 [Bactrim Ds] Herbals/Supplements -Info Only 1 each PO DAILY 03/05/18 Ranitidine HCl [Zantac] 150 mg PO HS 03/05/18 Warfarin Sodium [Coumadin 2.5MG 1.25 mg PO SUTUTHSA 03/05/18 (*)] Medical Decision Making ED Course/Re-evaluation: CHIEF COMPLAINT: L garcía hematoma / cellulitis HISTORY OF PRESENT ILLNESS: This patient is an anticoagulated (Coumadin) 72 year old male with history of amyloidosis. One week ago, he struck his left lateral garcía on a car door and developed a large hematoma. Over then week, his swelling and pain worsened and he developed surrounding redness on his anterior leg and dependent ecchymosis in his foot. He was evaluated here in the ED 03/03 for this and the infected hematoma was evacuated and the patient placed on Bactrim. He [facility] up at [facility] yesterday and was referred to Dr. Lan, general surgeon, for further evaluation. He presents today to the ED for this. Of note, he discontinued his anticoagulant 03/01 as directed by his primary care provider. He denies fever, chills, vomiting, or symptoms of systemic illness. REVIEW OF SYSTEMS: A comprehensive 10 system review of systems is otherwise negative aside from elements mentioned in the history of present illness and medical decision making. PHYSICAL EXAM: HR, BP, O2 Sat, RR. Temp noted General Appearance: Alert, well hydrated, appropriate, and non-toxic appearing. Head: Atraumatic without scalp tenderness or obvious injury Eyes: Pupils equal, round, reactive to light and accommodation, EOMI, no trauma , no injection. Ears: Clear bilaterally, no perforation, normal landmarks Nose: Atraumatic, no rhinorrhea, clear. Throat: There is no erythema or exudates, no lesions, normal tonsils, mucus membranes moist. Neck: Supple, 2+ carotid upstroke, nontender, no lymphadenopathy. Respiratory: No retractions, no distress, no wheezes, and no accessory muscle use. Lungs are clear to auscultation bilaterally. Cardiovascular: Regular rate and rhythm, no murmurs, rubs, or gallops. Bilateral carotid, radial, dorsalis pedis, and posterior tibial pulses intact. Good capillary refill all extremities. Gastrointestinal: Abdomen is soft, nontender, non-distended, no masses, no rebound, no guarding, no peritoneal signs. Musculoskeletal: Area of erythema surrounding an area of eschar over the left lateral garcía. Normal active ROM of all extremities. Neurological: Alert, appropriate, and interactive. The patient has normal DTRs and non-focal cranial nerves, motor, sensory, and cerebellar exam. Skin: No rashes, good turgor, no nodules on palpation. Past medical history: CHF, CKD stage 4, amyloidosis, normally on Warfarin. Past surgical history: Pacemaker Family history: Noncontributory Social history: at bedside. Retired. DIFFERENTIAL DIAGNOSIS: The differential diagnosis for the patient's leg swelling included but was not limited to hypoalbuminemia, congestive heart failure, cor pulmonale, venous stasis, trauma, and DVT. MEDICAL DECISION MAKIN72 y/o male with history of amyloidosis, CKD, CHF presents with non-healing left garcía wound secondary to an accidental injury and subsequent large infected hematoma. The patient is generally anticoagaulated (Coumadin) but discontinued this four days ago as directed by his PCP. The leg swelling is reduced since I& D of the wound two days ago (when I initially evaluated this patient here in the emergency department), however the leg remains erythematous and there is an area of eschar in the center of the wound. Plan to consult with general surgery as recommended by the wound clinic. Plan for labs including CBC, chemistries. 07:[address] Lan, general surgeon. Plan to admit to medicine. The patient has been NPO since 19:00 yesterday with the exception of small sips of water this morning to take his regular medications. Plan to administer IV antibiotic for the patient's cellulitis. He has history of CKD and has been dialyzed in the past. His kidney function has improved recently however and his A/V fistula was closed by Dr. Forde several months ago. Given this and elevated creatinine today of 3.9, we will choose antibiotics carefully to preserve the patient's kidney function. Likely Ancef will provide good coverage. Plan to consult with infectious disease. 07:[address] Melton, infectious disease specialist. Plan to administer 2gm IV Ancef. 08:06 Dr. Lan at bedside. Patient will go to the OR around 14:00 for debridement. 08:17 Spoke with hospitalist service. Dr. Santoyo accepts admission for medical perioperative management. - Data Points Laboratory Results: Laboratory Results 03/05/18 07:35 03/05/18 07:35 03/05/18 03/05/18 03/05/18 07:58 07:44 07:35 WBC RBC Hgb POC Hgb 14.6 gm/dL gm/dL (13.7-17.5) Hct POC Hct 43 % % (40-51) MCV MCH MCHC RDW Plt Count MPV Neut % (Auto) Lymph % (Auto) [place] % (Auto) Eos % (Auto) Baso % (Auto) Nucleat RBC Rel Count Absolute Neuts (auto) Absolute Lymphs (auto) Absolute Monos (auto) Absolute Eos (auto) Absolute Basos (auto) Absolute Nucleated RBC Immature Gran % Immature Gran # ESR POC Sodium 140 mEq/L mEq/L (135-145) Sodium 139 mEq/L mEq/L (135-145) POC Potassium 3.9 mEq/L mEq/L (3.3-5.0) Potassium 4.3 mEq/L mEq/L (3.5-5.2) POC Chloride 104 mEq/L mEq/L (97-110) Chloride 105 mEq/L mEq/L (97-110) Carbon Dioxide 23 mEq/l mEq/l (22-31) Anion Gap 11 mEq/L mEq/L (6-14) POC BUN 47 mg/dL H mg/dL (7-23) BUN 59 mg/dL H mg/dL (7-23) Creatinine 3.7 mg/dL H mg/dL (0.7-1.3) POC Creatinine 3.9 mg/dL H mg/dL (0.7-1.3) Estimated GFR 16 Glucose 96 mg/dL mg/dL (70-100) POC Glucose 99 mg/dL mg/dL (70-100) Calcium 9.6 mg/dL mg/dL (8.5-10.4) C-Reactive Protein 68.2 mg/L H mg/L (<10.0) 03/05/18 07:35 WBC 8.75 10^3/uL 10^3/uL (3.80-9.50) RBC 4.38 10^6/uL L 10^6/uL (4.40-6.38) Hgb 13.9 g/dL g/dL (13.7-17.5) POC Hgb Hct 42.3 % % (40.0-51.0) POC Hct MCV 96.6 fL fL (81.5-99.8) MCH 31.7 pg pg (27.9-34.1) MCHC 32.9 g/dL g/dL (32.4-36.7) RDW 16.8 % H % (11.5-15.2) Plt Count 219 10^3/uL 10^3/uL (150-400) MPV 11.6 fL fL (8.7-11.7) Neut % (Auto) 74.6 % H % (39.3-74.2) Lymph % (Auto) 10.6 % L % (15.0-45.0) [place] % (Auto) 11.4 % % (4.5-13.0) Eos % (Auto) 1.7 % % (0.6-7.6) Baso % (Auto) 0.3 % % (0.3-1.7) Nucleat RBC Rel Count 0.0 % % (0.0-0.2) Absolute Neuts (auto) 6.52 10^3/uL H 10^3/uL (1.70-6.50) Absolute Lymphs (auto) 0.93 10^3/uL L 10^3/uL (1.00-3.00) Absolute Monos (auto) 1.00 10^3/uL H 10^3/uL (0.30-0.80) Absolute Eos (auto) 0.15 10^3/uL 10^3/uL (0.03-0.40) Absolute Basos (auto) 0.03 10^3/uL 10^3/uL (0.02-0.10) Absolute Nucleated RBC 0.00 10^3/uL 10^3/uL (0-0.01) Immature Gran % 1.4 % H % (0.0-1.1) Immature Gran # 0.12 10^3/uL H 10^3/uL (0.00-0.10) ESR 43 MM/HR H MM/HR (0-20) POC Sodium Sodium POC Potassium Potassium POC Chloride Chloride Carbon Dioxide Anion Gap POC BUN BUN Creatinine POC Creatinine Estimated GFR Glucose POC Glucose Calcium C-Reactive Protein Medications Given: Discontinued Medications Bupivacaine HCl (Sensorcaine 0.5% Vial) Confirm Administered Dose 30 ml .ROUTE .STK-MED ONE Stop: 03/05/18 15:48 Last Admin: 03/05/18 18:14 Dose: Not Given Sodium Chloride (Ns) 1,000 mls @ 0 mls/hr IV EDNOW ONE; Wide Open PRN Reason: Protocol Stop: 03/05/18 07:41 Last Admin: 03/05/18 08:03 Dose: 1,000 mls Cefazolin Sodium/Dextrose (Ancef) 100 mls @ 200 mls/hr IV EDNOW ONE PRN Reason: Protocol Stop: 03/05/18 08:16 Last Admin: 03/05/18 08:04 Dose: 100 mls Sodium Chloride (Ns) 500 mls @ 0 mls/hr IV ONCE ONE PRN Reason: Per Protocol Stop: 03/05/18 13:42 Last Admin: 03/05/18 18:13 Dose: Not Given Lidocaine HCl (Lidocaine Hcl 1%) Confirm Administered Dose 300 mg .ROUTE .STK- MED ONE Stop: 03/05/18 16:29 Last Admin: 03/05/18 16:46 Dose: 200 mg Point of Care Test Results: Chemistry 03/05/18 07:58 POC Sodium 140 mEq/L mEq/L (135-145) POC Potassium 3.9 mEq/L mEq/L (3.3-5.0) POC Chloride 104 mEq/L mEq/L (97-110) POC BUN 47 mg/dL H mg/dL (7-23) POC Creatinine 3.9 mg/dL H mg/dL (0.7-1.3) POC Glucose 99 mg/dL mg/dL (70-100) ISTAT H&H 03/05/18 07:58 POC Hgb 14.6 gm/dL gm/dL (13.7-17.5) POC Hct 43 % % (40-51) Departure - Departure Disposition: To OP Cath/Surgery Clinical Impression: Necrotic eschar Cellulitis Qualifiers: Site of cellulitis: extremity Site of cellulitis of extremity: lower extremity Laterality: left Qualified Code(s): L03.116 - Cellulitis of left lower limb Traumatic hematoma of left lower leg with infection Qualifiers: Encounter type: subsequent encounter Qualified Code(s): S80.12XD - Contusion of left lower leg, subsequent encounter; L08.9 - Local infection of the skin and subcutaneous tissue, unspecified; L08.9 - Local infection of the skin and subcutaneous tissue, unspecified Condition: Good Report Scribed for: Dante Sharp Report Scribed by: Idania Ledesma Date of Report: 03/05/18 Time of Report: 07:42
[2018-03-05] MEDS ORDERED: NS 1,000 ML IV ONE (07:40)
[2018-03-05] MEDS ORDERED: ceFAZolin 2 GM/DEXTROSE 100 ML IV ONE (07:47)
[2018-03-05 08:14] LABS: PLATELET COUNT 219 10^3/uL (150-400)
--- NOTE | 2018-03-05 09:21 | GCON ---
DATE OF CONSULTATION: 03/05/2018 CHIEF COMPLAINT: Left lower extremity injury. HISTORY OF PRESENT ILLNESS: This is a 72-year-old male who presents to the emergency department now. This is his 2nd time. Briefly, the patient has multiple medical comorbidities including atrial fib rillation on Coumadin and amyloidosis. He states that last weekend he was getting out of his vehicle and struck the left garcía on the car door and developed a large hematoma. The swelling worsened over the weekend, and he was actually seen in the emergency department on Sunday, where this was lanced. There was a small eschar at that point in time. He was also placed on oral antibiotics. Since that time, the eschar has gotten somewhat bigger. He has seen his primary care as well as the [facility], who felt like this needed debridement. He presents this morning for that t reatment. He has intact sensation down there. It is tender. He denies having any systemic complain ts including fevers or chills and is generally bummed that this is going to require prolonged treatme nt. PAST MEDICAL HISTORY: Amyloidosis, chronic kidney disease, was on dialysis previously, currently not , atrial fibrillation on Coumadin. PAST SURGICAL HISTORY: He has a left upper extremity fistula which was subsequently ligated. FAMILY HISTORY: Noncontributory. SOCIAL HISTORY: Denies any illicit drug use. His is at bedside with him. REVIEW OF SYSTEMS: A full 10-point review was performed. PHYSICAL EXAM: VITAL SIGNS: Temperature 36.5. Blood pressure is 139/87. His heart rate 71, and he is 93% on room air. CONSTITUTIONAL: He is comfortable in no acute distress. EYES: His pupils equ al, round, and reactive to light and accommodation. He has anicteric sclerae. His extraocular movem ents are intact. EARS, NOSE, MOUTH, AND THROAT: He has dry mucous membranes, poor dentition. His h earing is normal. His ears appear normal. CARDIOVASCULAR: He is currently in a regular rate and rh ythm without any appreciable murmurs. RESPIRATORY: No respiratory distress, rales or rhonchi, and h e is otherwise clear to auscultation bilaterally. GI: His abdomen is soft, nondistended, nontender with normoactive bowel sounds. SKIN: His left lower extremity has an eschar with some surrounding c ellulitis. It measures 6.8 x 4 x 1.2 cm. It is tender. His distal foot has some bruising. VASCULA R: His DP pulse is 1+. His PT pulse is 1+. His foot is otherwise warm with some swelling. MUSCULO SKELETAL: Full strength. No tenderness. Normal joint range of motion. NEUROLOGIC: He is alert an d oriented x3. His cranial nerves 2-12 are intact. He has no weakness, no numbness. PSYCH: He is interacting appropriately. He is not anxious or encephalopathic. LYMPH/HEME/IMMUNOLOGIC: He has no cervical, groin, or supraclavicular lymphadenopathy appreciated. LABS: His white blood cell count is normal at 8. His H and H are stable at 13.9 and 42. His platel ets are normal at 219. His chemistry is largely unremarkable with the exception of a creatinine at 3 .7 and a BUN of 59. IMAGING: None. ASSESSMENT AND PLAN: 72-year-old male status post left lower extremity injury with eschar and underl jean hematoma. The patient has been off his anticoagulation since last week and on oral antibiotics. I feel at this point in time that this requires washout as the eschar has grown and the hematoma is not resolving. More than likely will have a significant amount of tissue burden at the area. Will likely wound VAC it but will ultimately probably need a skin graft to the area for definitive coverag e. I discussed the plan with the patient today. Remain n.p.o. OR this afternoon for debridement and VAC placement. /[id number]/MODL
[2018-03-05] MEDS ORDERED: ONDANSETRON 4 MG/2 ML VIAL IVP PRN ×2 (09:48→16:41)
[2018-03-05] MEDS ORDERED: HYDROmorphONE/DILAUDID 1 MG/ML INJ IVP PRN (09:48)
[2018-03-05] MEDS ORDERED: ONDANSETRON DISINTEGRATING 4 MG TAB PO PRN (09:48)
[2018-03-05] MEDS ORDERED: WARFARIN SODIUM 2.5 MG TAB PO SCH (10:00)
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
[2018-03-05] MEDS ORDERED: NS 1,000 ML IV SCH (10:30)
[2018-03-05] MEDS ORDERED: ceFAZolin 1 GM in NS 50 ML IV SCH (13:15)
[2018-03-05] MEDS ORDERED: NS 500 ML IV ONE (13:41)
[2018-03-05] MEDS ORDERED: ceFAZolin 0.5 GM in NS 50 ML IV SCH (14:00)
[2018-03-05 14:49] LABS: INR 1.21 (0.83-1.16); PROTIME(PATIENT) 15.5 SEC (12.0-15.0)
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
[2018-03-05] MEDS ORDERED: BUPIVACAINE 0.5% 30 ML SDV ONE (15:47)
[2018-03-05] MEDS ORDERED: fentaNYL 100 MCG/2 ML INJ ONE ×2 (15:54→16:29)
[2018-03-05] MEDS ORDERED: MIDAZOLAM 2 MG/2 ML VIAL ONE (15:54)
[2018-03-05] MEDS ORDERED: LIDOCAINE 1% 300 MG/30 ML SDV ONE (16:28)
[2018-03-05] MEDS ORDERED: fentaNYL 100 MCG/2 ML INJ IVP PRN (16:41)
[2018-03-05] MEDS ORDERED: NALOXONE HCL 0.4 MG/ML INJ IVP PRN (16:41)
[2018-03-05] MEDS ORDERED: DEXAMETHASONE 4 MG/ML VIAL IVP PRN (16:41)
[2018-03-05] MEDS ORDERED: ALBUTEROL 3 ML DEYVIAL IH PRN (16:41)
--- NOTE | 2018-03-05 16:41 | PDANEPAE ---
ANE Past Medical History - Cardiovascular History Hx Hypertension: Yes Hx Arrhythmias: Yes Hx Chest Pain: No Hx Coronary Artery / Peripheral Vascular Disease: No Hx CHF / Valvular Disease: Yes Hx Palpitations: No Cardiovascular History Comment: afib. cardiac amyloidosis. cardiomyopathy-low EF. chf. complete heart block. cad. followed by [facility] - Pulmonary History Hx COPD: No Hx Asthma/Reactive Airway Disease: No Hx Recent Upper Respiratory Infection: No Hx Oxygen in Use at Home: Yes O2 in Use at Home (L/minute): 2 Hx Sleep Apnea: Yes Pulmonary History Comment: janneth positive uses cpap- instructed pt to bring to hospital - Neurologic History Hx Cerebrovascular Accident: No Hx Seizures: No Hx Dementia: No - Endocrine History Hx Diabetes: No Endocrine History Comment: hypothyroidism. thyroid removed at 13 yo - Renal History Hx Renal Disorders: Yes Renal History Comment: hx of dialysis in 2012 for 8-9 months. CRI. ESRD - Liver History Hx Hepatic Disorders: No - Neurological & Psychiatric Hx Hx Neurological and Psychiatric Disorders: No - Cancer History Hx Cancer: Yes Cancer History Comment: AL. multiple myeloma - Congenital Disorder History Hx Congenital Disorders: No - GI History Hx Gastrointestinal Disorders: Yes Gastrointestinal History Comment: colitis - Other Health History Other Health History: wears contacts. skin is fragile d/t coumadin - Chronic Pain History Chronic Pain: No - Surgical History Prior Surgeries: 07/26/17 FRANCES/ CV with Zuleyma. 07/12/17 FRANCES with Zuleyma. 05/24/17 FRANCES with Gia. 07/23/12 revision of AVF with Maurisio. 05/30/12 AVF creation with Maurisio ROJO Review of Systems Review of Systems: - Pacemaker Date Pacemaker Last Checked: 07/27/17 ANE Patient History - Allergies Allergies/Adverse Reactions: HORSERADISH Allergy (Uncoded 03/05/18 07:18) Rash - Home Medications Home Medications: Acyclovir [Zovirax 200 mg (*)] 200 mg PO BID #0 05/24/17 [Last Taken 03/04/18 21 :00] Allopurinol [Allopurinol 100 MG (*)] 100 mg PO DAILY #0 05/24/17 [Last Taken 01/10] Aspirin [Aspirin 81mg (*)] 81 mg PO HS #0 05/24/17 [Last Taken 03/04/18] Atorvastatin Calcium [Lipitor 10 mg (*)] 10 mg PO HS #0 05/24/17 [Last Taken 01/10] Budesonide [Budesonide EC] 6 mg PO DAILY@1630 #0 05/24/17 [Last Taken 03/04/18] Carvedilol [Coreg (*)] 18.75 mg PO BIDMEAL #0 05/24/17 [Last Taken 03/04/18 18: 00] Cetirizine [ZyrTEC 10 mg (*)] 10 mg PO DAILY #0 05/24/17 [Last Taken 03/04/18] Cholestyramine (with Sugar) [Cholestyramine Packet] 4 gm PO BID #0 05/24/17 [ Last Taken 03/04/18] Furosemide [Lasix 40 MG (*)] 40 mg PO TID #0 05/24/17 [Last Taken 03/05/18] Glucosamine/Chondroitin [Glucosamine/Chondroitin (*)] 1 each PO DAILY #0 [Last Taken 03/04/18] Levothyroxine [Synthroid 150 mcg (*)] 150 mcg PO DAILY06 #0 05/24/17 [Last Taken 03/05/18] MIRTAZAPINE [Remeron 7.5 mg] 3.75 mg PO HS #0 05/24/17 [Last Taken 03/04/18] Multivitamins [Multivitamin (*)] 1 each PO DAILY #0 05/24/17 [Last Taken ] Potassium Cl [Klor-Con 20 meq (*)] 20 meq PO DAILY #0 05/24/17 [Last Taken 03/04] Tamsulosin HCl [Flomax 0.4 MG (*)] 0.4 mg PO HS #0 05/24/17 [Last Taken 03/04/18 ] Zolpidem Tartrate [Ambien 5MG (*)] 5 mg PO HS #0 05/24/17 [Last Taken 03/04/18] Warfarin Sodium [Coumadin 2.5MG (*)] 2.5 mg PO MWF #0 07/26/17 [Last Taken 02/27] Acetaminophen [Tylenol ES 500 mg (*)] 1,000 mg PO DAILY PRN #0 12/20/17 [Last Taken Unknown] Amiodarone HCl [Pacerone (*)] 200 mg PO DAILY #0 12/20/17 [Last Taken 03/04/18] Spironolactone [Aldactone 25 MG (*)] 12.5 mg PO DAILY #0 12/20/17 [Last Taken ] Herbals/Supplements -Info Only 1 each PO DAILY 03/05/18 [Last Taken Unknown] Ranitidine HCl [Zantac] 150 mg PO HS 03/05/18 [Last Taken 03/04/18] Warfarin Sodium [Coumadin 2.5MG (*)] 1.25 mg PO SUTUTHSA 03/05/18 [Last Taken ] - NPO status NPO Since - Liquids (Date): 03/05/18 NPO Since - Liquids (Time): 00:00 NPO Since - Solids (Date): 03/04/18 NPO Since - Solids (Time): 18:30 - Smoking Hx Smoking Status: Never smoked - Alcohol Use Alcohol Use: None - Family Anes Hx Family Hx Anesthesia Complications: none ANE Labs/Vital Signs - Labs Result Diagrams: 03/05/18 07:35 03/05/18 07:35 - Vital Signs Blood Pressure: 144/87 Heart Rate: 67 Respiratory Rate: 16 O2 Sat (%): 91 Height: 162.56 cm Weight: 77.111 kg ANE Physical Exam - Airway Neck exam: FROM Mallampati Score: Class 2 Mouth exam: normal dental/mouth exam - Pulmonary Pulmonary: no respiratory distress, reduced air movement - Cardiovascular Cardiovascular: regular rate and rhythym, other - ASA Status ASA Status: IV (pacemaker dependent) ANE Anesthesia Plan Anesthesia Plan: [facility] Anesthesia: single shot NB, popliteal SNB
--- NOTE | 2018-03-05 17:07 | POSTOPPROG ---
Post Op Note Date of Operation: 03/05/18 Surgeon: Steve Lan Anesthesiologist: Abelardo Anesthesia: IV Sedation, Other (Specify) (Nerve block) Pre-op Diagnosis: LLE wound Post-op Diagnosis: same Procedure: Incision and drainage of LLE wound c VAC placement Findings: 8.5x5x0.5cm down to subq Inf/Abcess present in the surg proc area at time of surgery?: No EBL: 50-100 Total fluids administered: 3L washout Drains: Wound Vac Specimen(s): Cultures taken
[2018-03-05] MEDS: CARVEDILOL 6.25 MG TAB PO SCH (19:37)
[2018-03-05] MEDS: BUDESONIDE 3 MG EC CAP PO SCH (19:38)
--- NOTE | 2018-03-05 20:16 | GOP ---
DATE OF OPERATION: 03/05/2018 SURGEON: Steve Lan MD MANAGER EXPRESS: None. ANESTHESIA: Nerve block with local. ANESTHESIOLOGIST: Denise Zhou MD. PREOPERATIVE DIAGNOSIS: Left lower extremity traumatic wound with hematoma and eschar. POSTOPERATIVE DIAGNOSIS: Left lower extremity traumatic wound with hematoma and eschar. PROCEDURE PERFORMED: Incision and drainage of left lower extremity wound with wound vacuum-assisted closure placement. FINDINGS: A large hematoma which tracked both superiorly and inferiorly. The final wound measuremen ts were 8.5 x 5 x 0.5 cm, tracking down to the subcutaneous tissue. No bone, tendon, or any structur e were exposed. SPECIMENS: Fluid taken for culture. ESTIMATED BLOOD LOSS: 50 cc. All old coagulated blood. DESCRIPTION OF PROCEDURE: The patient was greeted in the preoperative suite. Once again, risks, josé efits, and alternatives were discussed. Consent was signed. He was then brought back to the operati ve suite, placed on the OR table in supine position. After all anesthesia machines including SCDs we re on and functioning, World [employer] time-out was performed. A nerve block was then perf ormed per Dr. Zhou to successfully anesthetize the left lower extremity. After this was done, the patient's left lower leg was prepped and draped in typical sterile fashion. I commenced the procedur e by first evacuating the overlying eschar. There was a significant amount of coagulated blood deep to this. No purulent fluid was identified. The cavity probed both superiorly and inferiorly. I did take the skin over this for final wound measurements craniocaudal 8.5 cm. I evacuated all the old c lot. Just deep to this was some subcutaneous fat which appeared to be healthy and viable. No bone w as exposed. Hemostasis was achieved with electrocautery and gentle pressure. After successful hemos tasis the wound was irrigated with 3 L sterile saline. A wound VAC was then brought into the field. A black sponge was placed over the cavity. Drapes were placed and it was attached to suction at 125 mmHg, which was well tolerated by the patient. He was then awoken from his sedation and taken to e PACU in satisfactory condition. DRAINS: Wound VAC. COUNTS: All counts were reported as correct x2. /[id number]/MODL
[2018-03-05] MEDS: ACYCLOVIR 200 MG CAP PO SCH (20:27)
[2018-03-05] MEDS: CHOLESTYRAMINE/SUCROSE 4 GM PKT PO SCH (20:28)
[2018-03-05] MEDS: oxyCODONE IR 5 MG TAB PO PRN (20:35)
[2018-03-05] MEDS ORDERED: MIRTAZAPINE 15 MG TAB PO SCH (21:00)
[2018-03-05] MEDS ORDERED: ATORVASTATIN CALCIUM 10 MG TAB PO SCH (21:00)
[2018-03-05] MEDS ORDERED: ZOLPIDEM TARTRATE 5 MG TAB PO SCH (21:00)
[2018-03-05] MEDS ORDERED: TAMSULOSIN HCL 0.4 MG CAP PO SCH (21:00)
[2018-03-05] MEDS ORDERED: RANITIDINE HCL 150 MG/10 ML UDCUP PO SCH (21:00)
[2018-03-06] MEDS: ACETAMINOPHEN 325 MG TAB PO PRN ×2 (00:33→16:01)
[2018-03-06] MEDS: oxyCODONE IR 5 MG TAB PO PRN ×2 (03:27→09:24)
[2018-03-06] MEDS ORDERED: LEVOTHYROXINE 150 MCG TAB PO SCH (06:00)
[2018-03-06 06:09] LABS: PLATELET COUNT 187 10^3/uL (150-400)
--- NOTE | 2018-03-06 07:37 | SOAPPROG ---
SOAP Progress Note Assessment/Plan: Assessment: 72yo M POD#1 s/p LLE debridement c VAC - VSS., HDS - pain is well controlled, block has worn off - surrounding skin erythema improving, VAC with minimal output - gram stain shows no orgs, likely tx to PO Keflex - needs home nurse and VAC. OK c DC today if all is set up Plan: 03/06/18 07:36 Subjective: feels well, some pain but tolerable Objective: Vital Signs Temp Pulse Resp BP Pulse Ox 36.5 C 60 14 122/70 H 97 03/06/18 03:25 03/06/18 03:25 03/06/18 03:25 03/06/18 03:25 03/06/18 03:25 Microbiology 03/05/18 16:40 Gram Stain - Final Leg - Eswab Laboratory Results 03/06/18 04:51 03/06/18 04:51 03/05/18 03/06/18 03/07/18 05:59 05:59 05:59 Intake Total 1440 Output Total 601 Balance 839 PT 15.5 SEC (12.0-15.0) H 03/05/18 14:15 INR 1.21 (0.83-1.16) H 03/05/18 14:15 ICD10 Worksheet Patient Problems: Problems Problem Status Onset Cellulitis Acute Necrotic eschar Acute Traumatic hematoma of left lower leg with infection Acute
[2018-03-06] MEDS ORDERED: WARFARIN SODIUM 2.5 MG TAB PO SCH (08:00)
[2018-03-06] MEDS: CARVEDILOL 6.25 MG TAB PO SCH (08:52)
[2018-03-06] MEDS: ACYCLOVIR 200 MG CAP PO SCH (08:53)
[2018-03-06] MEDS ORDERED: CETIRIZINE 10 MG TAB PO SCH (09:00)
[2018-03-06] MEDS ORDERED: AMIODARONE HCL 200 MG TAB PO SCH (09:00)
--- NOTE | 2018-03-06 09:40 | PDMN ---
Medical Necessity Medical necessity: Pt meets IP criteria as of 03/05/[address] 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
[2018-03-06] MEDS: CHOLESTYRAMINE/SUCROSE 4 GM PKT PO SCH (10:17)
--- NOTE | 2018-03-06 11:37 | PCMIDPN ---
Assessment/Plan: Assessment/Plan: * Right lower extremity hematoma status post incision and drainage with possible superimposed cellulitis: Operative findings noted with no purulence being present. Suspect majority of findings are related to pool blood products rather than skin and soft tissue infection. Plan transition to cephalexin 500 mg p.o. twice daily pending culture data (5 days of therapy) at time of discharge. Follow-up scheduled with Dr. Rodriguez on 03/13/2018 for repeat assessment to ensure no evidence of active skin and soft tissue infection. Patient advised to notify our office for fever, chills, skin rash, nausea, vomiting or diarrhea. 03/06/18 11:34 Subjective: Patient with less left lower extremity pain post incision and drainage of hematoma. Operative findings noted with old blood and no purulence present. Objective: Vital Signs Temp Pulse Resp BP Pulse Ox 36.4 C 60 16 108/70 94 03/06/18 11:25 03/06/18 11:25 03/06/18 11:25 03/06/18 11:25 03/06/18 11:25 Microbiology 03/05/18 16:40 Gram Stain - Final Leg - Eswab Laboratory Results 03/06/18 04:51 03/06/18 04:51 03/05/18 03/06/18 03/07/18 05:59 05:59 05:59 Intake Total 1440 150 Output Total 601 275 Balance 839 -125 ESR 43 MM/HR (0-20) H 03/05/18 07:35 C-Reactive Protein 68.2 mg/L (<10.0) H 03/05/18 07:44 Cefazolin # 1 Blood cultures x2 no growth to date Hematoma Gram stain rare white blood cells, no organisms, culture pending - Physical Exam General Appearance: alert, no apparent distress EENT: No scleral icterus, No thrush Respiratory: lungs clear, No respiratory distress Cardiac/Chest: regular rate, rhythm Extremities: inflammation (Left lower extremity with wound VAC in place; erythema extending approximately 3 cm circumferentially from wound VAC; extensive ecchymosis extending from mid thigh to toes) Abdomen: non-tender ICD10 Worksheet Patient Problems: Problems Problem Status Onset Cellulitis Acute Necrotic eschar Acute Traumatic hematoma of left lower leg with infection Acute
[2018-03-06 15:42] VITALS: BP 108/76
[2018-03-06] MEDS: BUDESONIDE 3 MG EC CAP PO SCH (15:45)
--- NOTE | 2018-03-06 16:23 | ASMTCMCOM ---
CM Note CM Note Notes: CM spoke to GEOFFREY Conrad regarding d/c POC. Pt had a planned surgery and can d/c today w/ a wound vac. CM submitted a wound vac application to [facility]. [facility] is able to release wound vac to pt. CM met w/ pt and for dispo planning. They don't have a preference on HC agency. Referral sent to [facility]. [facility] is able to accept. Parul from [facility] stopped by and met w/ pt and . PT is recommending HC. CM had pt sign confirmation for wound vac. DC orders sent to [facility]. No other needs at this time. CM available for changes. Plan: Home w/ [facility]; PT, RN Date Signed: 03/06/2018 04:23 PM Electronically Signed By:JOSEFINA Ibrahim
--- NOTE | 2018-03-06 16:23 | PDIAF ---
- Diagnosis Code Status: Full Code - Medication Management Additional Medication Instructions: Cephalexin 500mg PO BID x3 days starting . Resume warfarin 03/07. Resume furosemide 40mg PO TID 03/07. Discharge Medications: electronically signed and located in the Home Medication List. PICC Care - Routine: N/A - Orders Services needed: Home Care, Registered Nurse, Physical Therapy Home Care Face to Face: I certify that this patient was under my care and that I had the required [id number] encounter meeting the encounter requirements on the discharge day. My findings support the fact that the patient is homebound as defined in Home Care Face to Face Continued: CMS Chapter 7 Medicare Benefits Manual 30.1.1 , The condition of the patient is such that there exists a normal inability to leave home and consequently, leaving home would require a considerable and taxing effort. Oxygen: wears 2L with CPAP at night Diet Recommendation: sodium restricted Angel: Not applicable Additional Instructions: I sent a prescription for 3 more days of cephalexin (antibiotic) to your pharmacy. You should start this tomorrow morning and take twice daily. Please follow up with Dr Rodriguez (infectious disease) on 03/13. Please follow up with Dr Lan in the next 2 weeks. We are setting you up with home health nursing and physical therapy. You will need to get some blood drawn to keep tabs on your kidney function. This should happen Sunday. Please resume taking your furosemide and warfarin tomorrow (03/07). - Labs/Radiology BMP Date: 03/08/18 (monitor renal function (Creatinine 3.2 on 03/06, baseline 2.8)) - Follow Up Care Current Providers and Referrals: RICHAR TAYLOR [Primary Care Provider] - As per Instructions Steve Lan MD [Medical Doctor] - follow up in 2 weeks (either in office or at wound clinic, I am there ) Erika Rodriguez MD [Medical Doctor] - 03/13/18 11:00 am
--- NOTE | 2018-03-06 16:23 | PDDCSUM ---
Discharge Summary Discharge Summary: Date of Admission: 03/05/2018 Date of Discharge: 03/06/2018 Consultants: surgery (Dr Lan), ID (Dr Rodriguez) Procedures: 1. I&D of left lower extremity wound with vacuum-assisted closure placement Studies: 1. Renal US: no hydronephrosis, small kidneys Disposition: home with home health RN, PT Discharge Diagnoses: 1. Left lower extremity traumatic wound with hematoma, eschar, and cellulitis 2. Acute kidney injury on stage 4 CKD 3. Chronic systolic CHF (LVEF 33%) 4. Paroxysmal atrial fibrillation on warfarin 5. 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 Hypothyroidism Brief Hospital Course: 72yo M with atrial fibrillation on warfarin, systemic amyloidosis complicated by CKD and CHF here with non-healing left garcía wound after mild trauma. He was taken to OR by Dr Lan and had I&D with removal of clotted blood but no purulent material. Swab was sent for culture and negative at time of discharge. Overall very low suspicion for deep infection. He did have a mild cellulitis around the wound which is being treated with keflex. He can resume his warfarin tomorrow. He did improve quicker than expected and was safe for discharge. He did have an GEOVANNY on admission. I suspect this was due to recent bactrim and possibly some dehydration. His creatinine improved after stopping bactrim and gentle IVF. We briefly held his lasix and he should resume this tomorrow. He will need a repeat BMP in 2 days and I have ordered this. Medications: Please refer to EMR for complete list. Additions this admission include cephalexin 500mg PO BID x3 more days. Follow Up Plan: 1. BMP in 2 days to monitor renal function 2. Resume warfarin tomorrow with routine INR checks 3. To be seen in ID clinic with Dr Rodriguez on 03/[address] Lan in surgery clinic 5. He is being set up with home health RN to perform wound vac changes Physical Exam: Vitals reviewed, afebrile. Alert and oriented. RRR with systolic murmur. Lungs clear. Abdomen protuberant but nontender. LLE pitting edema but no edema in RLE.
--- NOTE | 2018-03-06 16:27 | ASDISCHSUM ---
Discharge Information Plan Status:Home with Home Health Medically Cleared to Leave:03/05/2018 Discharge Date:03/05/2018 CM D/C Disposition: ADT D/C Disposition:HHSNOTBCH Projected Discharge Date:03/06/2018 11:00 AM Transportation at D/C: Discharge Delay Reason: Follow-Up Date:03/06/2018 11:00 AM Discharge Slot: Final Diagnosis: Placement Information Referral Type:*Home Health Care Services Referral ID:[id number] Provider Name:Noman Mendoza Address 1:[address] [place] Phone Number: Address 2: Fax Number: City:[place] Selection Factors: State:[place] Patient Contact Information Contact Name:NAINAFIFI Relationship: Address:[address] Work Phone: City:[facility] Phone: State/[facility] Code:[place] [address] Email: Financial Information Financial Class:Medicare Primary Plan Desc:MEDICARE INPATIENT Primary Plan Number:[id number] Secondary Plan Desc:AARP/MDR SUPPLEMENT Secondary Plan Number:[id number] Assessment Information LACE LACE Length of stay for Answers: 1 day current admission Acuity / Level of Answers: Yes Care: Did the patient have an inpatient admission? Comorbidities - select Answers: Congestive heart failure all that apply Coronary Artery Disease Moderate or severe liver or renal disease Other Notes: HTN; AFib # of Emergency department Answers: 1-2 visits in the last 6 months Social determinants Answers: History of substance abuse (ETOH, street drugs, prescription drugs, etc.) Score: 17 Date Signed: 03/06/2018 04:26 PM Electronically Signed By:JOSEFINA Ibrahim [facility] CM Progress Note CM Note CM Note Notes: CM spoke to GEOFFREY Conrad regarding d/c POC. Pt had a planned surgery and can d/c today w/ a wound vac. CM submitted a wound vac application to [facility]. [facility] is able to release wound vac to pt. CM met w/ pt and for dispo planning. They don't have a preference on HC agency. Referral sent to [facility]. [facility] is able to accept. Parul from [facility] stopped by and met w/ pt and . PT is recommending HC. CM had pt sign confirmation for wound vac. DC orders sent to [facility]. No other needs at this time. CM available for changes. Plan: Home w/ [facility]; PT, RN Date Signed: 03/06/2018 04:23 PM Electronically Signed By:JOSEFINA Ibrahim Intervention Information
== END 2018-03-06 17:35 | disposition home health service (06) | DRG 605 ==
LOC: F3E 17:52
PROVIDERS: ADMIT Internal Medicine; ATTEND Internal Medicine
PROC: 0HCLXZZ Extirpation of Matter from Left Lower Leg Skin, External Approach (ICD-10-PCS; principal; 2018-03-05 14:30)
DX: S80.12XA Contusion of left lower leg, initial encounter (principal); L03.116 Cellulitis of left lower limb; V48.4XXA Person boarding or alighting a car injured in noncollision transport accident, initial encounter; N17.9 Acute kidney failure, unspecified; I50.20 Unspecified systolic (congestive) heart failure; N18.4 Chronic kidney disease, stage 4 (severe); I48.0 Paroxysmal atrial fibrillation; G47.33 Obstructive sleep apnea (adult) (pediatric); E03.9 Hypothyroidism, unspecified; E85.89 Other amyloidosis; Z79.01 Long term (current) use of anticoagulants; Z95.0 Presence of cardiac pacemaker
CPT/HCPCS: 82435-PO; 82565-PO; 82947-PO; 84132-PO; 84295-PO; 84520-PO; 85014-PO; 96365; 97161-GP; G8978-GP-CK; G8979-GP-CI; J0690; J2250; J3010

== ENCOUNTER 2018-03-28 10:22 | Day surgery (SDC) | payer OTHER, MEDICARE ==
[2018-03-28] MEDS ORDERED: ceFAZolin 2 GM/DEXTROSE 100 ML IV ONE (10:37)
[2018-03-28] MEDS ORDERED: LIDOCAINE 1% 2 ML INJ ID PRN (10:38)
[2018-03-28] MEDS ORDERED: LR 1,000 ML IV ONE (10:38)
[2018-03-28] MEDS ORDERED: THROMBIN (BOVINE) 20,000 UNIT SPRAY TP ONE (10:52)
[2018-03-28] MEDS ORDERED: BUPIVACAINE 0.5% 30 ML SDV ONE ×2 (10:52→10:53)
[2018-03-28] MEDS ORDERED: LIDOCAINE 1% 300 MG/30 ML SDV ONE (10:52)
[2018-03-28] MEDS ORDERED: EPINEPHrine 1 MG/ML INJ ONE (10:53)
[2018-03-28] MEDS ORDERED: NS 500 ML IV SCH (11:00)
[2018-03-28 11:25] LABS: INR 2.28 (0.83-1.16); PROTIME(PATIENT) 25.1 SEC (12.0-15.0)
[2018-03-28] MEDS ORDERED: MINERAL OIL 10 ML VIAL ONE (11:30)
[2018-03-28] MEDS ORDERED: MIDAZOLAM 2 MG/2 ML VIAL ONE (12:16)
[2018-03-28] MEDS ORDERED: fentaNYL 100 MCG/2 ML INJ ONE (12:17)
[2018-03-28] MEDS ORDERED: PROPOFOL 200 MG/20 ML VIAL ONE (12:17)
[2018-03-28] MEDS ORDERED: METOCLOPRAMIDE 10 MG/2 ML VIAL ONE (12:20)
[2018-03-28] MEDS ORDERED: ONDANSETRON 4 MG/2 ML VIAL ONE (12:20)
[2018-03-28] MEDS ORDERED: BACITRACIN ZINC 0.5 OZ OINTTUBE TP ONE (13:00)
[2018-03-28] MEDS ORDERED: fentaNYL 100 MCG/2 ML INJ IVP PRN (13:58)
[2018-03-28] MEDS ORDERED: ONDANSETRON 4 MG/2 ML VIAL IVP PRN (13:58)
[2018-03-28] MEDS ORDERED: NALOXONE HCL 0.4 MG/ML INJ IVP PRN (13:58)
[2018-03-28] MEDS ORDERED: NS 500 ML IV PRN (13:58)
--- NOTE | 2018-03-28 13:59 | POSTANESTH ---
Post Anesthetic Evaluation Cardiovascular Status: Similar to Pre-Op Cond Respiratory Status: Similar to Pre-op Cond. Level of Consciousness/Mental Status: Can Participate in Eval Pain Control: Adequate, Prn Tx Ordered Nausea/Vomiting Control: Adequate, Prn Tx Ordered Complications Possibly Related to Anesthesia: None Noted
[2018-03-28 15:01] VITALS: BP 118/66
--- NOTE | 2018-03-29 15:58 | GOP ---
DATE OF OPERATION: 03/28/2018 SURGEON: Steve Lan MD PATHOLOGY TEACHER: None. ANESTHESIA: General endotracheal. ANESTHESIOLOGIST: Efrain Haq MD. PREOPERATIVE DIAGNOSIS: Traumatic wound to the left lower extremity. POSTOPERATIVE DIAGNOSIS: Traumatic wound to the left lower extremity. PROCEDURE PERFORMED: Split-thickness skin graft to the left lower extremity, left thigh donor site. FINDINGS: Successful split-thickness skin graft to the left lower extremity; wound VAC successfully placed over the top at 125 mmHg suction. SPECIMENS: None. ESTIMATED BLOOD LOSS: 10 cc specimens. DESCRIPTION OF PROCEDURE: The patient was greeted in the preoperative suite. Once again, risks, josé efits, and alternatives were discussed. He was then brought back to the operative suite, placed on t he OR table in supine position. After all anesthesia machines including SCDs were on and functioning , World Health Organization time-out was performed. After successful induction of general anesthesia, the patient's left lower extremity was prepped and draped in the typical sterile fashion. I commenced the procedure by first addressing the wound bed. There was some hypergranular tissue, which was successfully trimmed down sharply. Hemostasis was ac hieved with a combination of electrocautery and gentle pressure. I then turned my attention toward t he patient's left thigh, which was chosen as the donor site. The 2-inch dermatome was selected with a thickness of 0.12. I successfully harvested 2 pieces of skin from the site and covered the area wi th a thrombin-soaked piece of gauze. I then placed it in a 1.5:1 mesher and then successfully placed it into the wound bed with the dermis side down. It was tacked to the wound edges using edgard. A gain, 2 pieces were utilized to cover the entire wound bed, which I did so with minimal overlap. A p iece of Xeroform was then trimmed and a wound VAC was placed to the area. It was attached to suction at 125 mmHg, which was well tolerated by the patient. I turned my attention toward the thigh. It w as infiltrated with 0.25% Marcaine with epinephrine. Hemostasis was achieved with gentle pressure. A sterile dressing consisting of bacitracin, Adaptic, nonadherent dressing, and gauze was then placed . The patient was then extubated in the operative suite and taken to the PACU in satisfactory condit ion. DRAINS: None. COUNTS: All counts were reported as correct x2. /[id number]/MODL
== END 2018-03-28 15:50 | disposition home or self-care (01) ==
LOC: FSGY 10:22
PROVIDERS: ATTEND Surgery
DX: S81.802A Unspecified open wound, left lower leg, initial encounter (principal); V48.4XXA Person boarding or alighting a car injured in noncollision transport accident, initial encounter
CPT/HCPCS: J0171; J0690; J2250; J2405; J2704; J2765; J3010

== ENCOUNTER 2018-05-07 06:56 | Observation (INO) | payer OTHER, MEDICARE ==
[2018-05-07] MEDS ORDERED: BACITRACIN IRRIGATION/NS 50,000 UNITS/1,000 ML BTL IRR ONE (06:58)
[2018-05-07] MEDS ORDERED: DIAZEPAM 5 MG TAB PO ONE (06:58)
[2018-05-07] MEDS ORDERED: NS 1,000 ML IV ONE (06:58)
[2018-05-07] MEDS ORDERED: ceFAZolin 2 GM/DEXTROSE 100 ML IV ONE (06:58)
[2018-05-07] MEDS ORDERED: diphenhydrAMINE 25 MG CAP PO ONE (06:58)
[2018-05-07 07:42] LABS: PLATELET COUNT 249 10^3/uL (150-400)
[2018-05-07 07:50] LABS: INR 1.39 (0.83-1.16); PROTIME(PATIENT) 17.2 SEC (12.0-15.0)
[2018-05-07] MEDS ORDERED: LIDOCAINE 1% 300 MG/30 ML SDV ONE (08:15)
[2018-05-07] MEDS ORDERED: IOPAMIDOL (ISOVUE-300) 100 ML BTL ONE (08:16)
[2018-05-07] MEDS ORDERED: BUPIVACAINE 0.75% 10 ML SDV ONE (08:16)
--- NOTE | 2018-05-07 08:22 | PDGENHP ---
History & Physical Chief Complaint: chf Relevant Physical Exam: s1s2 rrr cta ao3 Cardiorespiratory Assessment: upgrade of pm to bivicd. has renal failure, understands risk of worsening and potential risk of dialysis. may need lead tunneling from R
[2018-05-07] MEDS ORDERED: fentaNYL 100 MCG/2 ML INJ ONE ×2 (08:48→10:44)
[2018-05-07] MEDS ORDERED: PROPOFOL/EMULSION 500 MG/50 ML BOTTLE IV ONE (08:49)
[2018-05-07] MEDS ORDERED: ePHEDrine SULFATE 25 MG/5 ML SYR ONE ×2 (08:51)
--- NOTE | 2018-05-07 10:11 | PDANEPAE ---
ANE History of Present Illness here for BIV ICD upgrade DARREL Past Medical History - Cardiovascular History Hx Hypertension: Yes Hx Arrhythmias: Yes Hx Chest Pain: No Hx Coronary Artery / Peripheral Vascular Disease: No Hx CHF / Valvular Disease: Yes Hx Palpitations: No Cardiovascular History Comment: afib. cardiac amyloidosis. cardiomyopathy-low EF. chf. complete heart block. cad. followed by [facility] - Pulmonary History Hx COPD: No Hx Asthma/Reactive Airway Disease: No Hx Recent Upper Respiratory Infection: No Hx Oxygen in Use at Home: Yes Hx Sleep Apnea: Yes Pulmonary History Comment: janneth positive uses cpap- W/O2. instructed pt to bring to hospital - Neurologic History Hx Cerebrovascular Accident: No Hx Seizures: No Hx Dementia: No - Endocrine History Hx Diabetes: No Endocrine History Comment: hypothyroidism. thyroid removed at 13 yo - Renal History Hx Renal Disorders: Yes Renal History Comment: hx of dialysis in 2012 for 8-9 months. CRI. ESRD - Liver History Hx Hepatic Disorders: No - Neurological & Psychiatric Hx Hx Neurological and Psychiatric Disorders: No - Cancer History Hx Cancer: Yes Cancer History Comment: AL. multiple myeloma - Congenital Disorder History Hx Congenital Disorders: No - GI History Hx Gastrointestinal Disorders: Yes Gastrointestinal History Comment: colitis - Other Health History Other Health History: wears contacts. skin is fragile d/t coumadin - Chronic Pain History Chronic Pain: No - Surgical History Prior Surgeries: WOUND VAC PLACED 3 WKS AGO. 07/26/17 FRANCES/ CV with Zuleyma. 07/12 FRANCES with Zuleyma. 05/24/17 FRANCES with Gia. 07/23/12 revision of AVF with Maurisio. 05/30/12 AVF creation with Maurisio ROJO Review of Systems Review of systems is: negative Review of Systems: - Exercise capacity Exercise capacity: <4 METS - Pacemaker Date Pacemaker Last Checked: 12/31/17 ANE Patient History - Allergies Allergies/Adverse Reactions: HORSERADISH Allergy (Uncoded 03/05/18 07:18) Rash - Home Medications Home medications: home medication list seen and reviewed Home Medications: Allopurinol [Allopurinol 100 MG (*)] 100 mg PO DAILY #0 05/24/17 [Last Taken 06/11 07:00] Aspirin [Aspirin 81mg (*)] 81 mg PO HS #0 05/24/17 [Last Taken 1 Day Ago ~] Atorvastatin Calcium [Lipitor 10 mg (*)] 10 mg PO HS #0 05/24/17 [Last Taken 1 Day Ago ~03/27/18] Budesonide [Budesonide EC] 6 mg PO DAILY@1630 #0 05/24/17 [Last Taken 1 Day Ago ~03/27/18] Carvedilol [Coreg (*)] 18.75 mg PO BIDMEAL #0 05/24/17 [Last Taken 03/28/18 07: 00] Cholestyramine (with Sugar) [Cholestyramine Packet] 4 gm PO BID #0 05/24/17 [ Last Taken 2 Days Ago ~03/26/18] Furosemide [Lasix 40 MG (*)] 40 mg PO TID@,,1630 #0 05/24/17 [Last Taken 1 Day Ago ~03/27/18] Glucosamine/Chondroitin [Glucosamine/Chondroitin (*)] 1 each PO DAILY #0 [Last Taken 1 Day Ago ~03/27/18] Levothyroxine [Synthroid 150 mcg (*)] 150 mcg PO DAILY06 #0 05/24/17 [Last Taken 03/28/18 07:00] MIRTAZAPINE [Remeron 7.5 mg] 7.5 mg PO HS #0 05/24/17 [Last Taken 1 Day Ago ~05/14] Multivitamins [Multivitamin (*)] 1 each PO DAILY #0 05/24/17 [Last Taken 1 Day Ago ~03/27/18] Potassium Cl [Klor-Con 20 meq (*)] 20 meq PO DAILY #0 05/24/17 [Last Taken 1 Day Ago ~03/27/18] Tamsulosin HCl [Flomax 0.4 MG (*)] 0.4 mg PO HS #0 05/24/17 [Last Taken 1 Day Ago ~03/27/18] Zolpidem Tartrate [Ambien 5MG (*)] 5 mg PO HS #0 05/24/17 [Last Taken 1 Day Ago ~03/27/18] Warfarin Sodium [Coumadin 2.5MG (*)] 1.25 mg PO MWF #0 07/26/17 [Last Taken 04/13 07:00] Acetaminophen [Tylenol ES 500 mg (*)] 1,000 mg PO DAILY PRN #0 12/20/17 [Last Taken 1 Day Ago ~03/27/18] Amiodarone HCl [Pacerone (*)] 200 mg PO DAILY #0 12/20/17 [Last Taken 03/28/18 07:00] Spironolactone [Aldactone 25 MG (*)] 12.5 mg PO DAILY #0 12/20/17 [Last Taken 1 Day Ago ~03/27/18] Herbals/Supplements -Info Only 1 each PO DAILY 03/05/18 [Last Taken 1 Day Ago ~ 03/27/18] Ranitidine HCl [Zantac] 150 mg PO HS 03/05/18 [Last Taken 1 Day Ago ~03/27/18] Warfarin Sodium [Coumadin 2.5MG (*)] 2.5 mg PO SUTUTHSA 03/05/18 [Last Taken 05/14 07:00] Acyclovir [Zovirax 200 mg (*)] 200 mg PO BID 05/01/18 [Last Taken Unknown] - NPO status NPO Status: no food or drink >8 hours - Smoking Hx Smoking Status: Never smoked - Family Anes Hx Family Hx Anesthesia Complications: none ANE Labs/Vital Signs - Labs Result Diagrams: 05/07/18 07:30 05/07/18 07:30 - Vital Signs Height: 163 cm Weight: 77.1 kg ANE Physical Exam - Airway Neck exam: FROM Mallampati Score: Class 1 Mouth exam: normal dental/mouth exam - Pulmonary Pulmonary: no respiratory distress - Cardiovascular Cardiovascular: regular rate and rhythym - ASA Status ASA Status: III ANE Anesthesia Plan Anesthesia Plan: general endotracheal anesthesia
[2018-05-07] MEDS ORDERED: PHENYLEPHRINE HCL 100 MCG/ML SYR ONE (10:20)
[2018-05-07] MEDS ORDERED: ACETAMINOPHEN 500 MG TAB PO PRN (11:13)
[2018-05-07] MEDS ORDERED: WARFARIN SODIUM 2.5 MG TAB PO SCH (11:15)
--- NOTE | 2018-05-07 12:20 | EPPROC ---
Electrophysiology Procedure Note: PROCEDURE PERFORMED: 1. Upgrade of A-V PM to A-BiV ICD 2. Subclavian vein angiography 3. Fluoroscopy INDICATION: Existing A-V PM Complete AV block Cardiomyopathy Renal failure PROCEDURE NOTE: Patient presented to the cardiac catheterization laboratory in a fasting, postabsorptive state. Dr. Obdulia Tolbert administered anesthesia. The L infraclavicular area was prepped and draped in the usual sterile fashion. Lidocaine plus bupivacaine was used for local anesthesia. Access x 2 to extrathoracic axillary vein was obtained using direct stick technique. Guidewire did not pass easily and therefore angled glide wire needed to be used. Using a combination of blunt and sharp dissection and electrocautery, the dissection was carried down to the prepectoral fascia. The existing pacemaker pocket was exposed. All bleeding was controlled with electrocautery. Fluoroscopy was utilized during the entire procedure for venous access and placement of the leads. A purse string suture was applied around the guide wire. Diagnostic testing of the existing leads was performed. A #7 Fr sheath was advanced over first guidewire. RV ICD lead was placed into the RV and screwed in place at the distal IV septum. Lead was secured with 3 sutures over suture sleeve. A 9 Sami Whorley sheath was advanced over the 2nd guide wire into the subclavian vein. The coronary sinus ostium was engaged. A coronary sinus quadrapolar lead was advanced into the coronary sinus. An angioplasty wire was advanced through the lead and advanced into the mid portion of the lateral branch of the coronary sinus. The lead was advanced over the angioplasty wire. Pacing threshold, sensing and impedance was determined. There was diaphragmatic stimulation at maximum output on electrodes 1-2 but none on 2-3 or 3-4. The delivery system and the 9 Fr sheath were peeled away. Again, pacing threshold, sensing and impedance was determined. The CS lead was secured to the prepectoral fascia with 3nonabsorbablesutures. Pace sense RV lead was capped. Pocket was flushed with antibiotic solution. Leads were attached to ICD generator and generator was sutured in place. Fluoroscopy was performed in FRAUSTO and IDALMIS planes to verify right sided placement of the RA and RV leads. Also fluoroscopy of the ICD pocket was performed. Defibrillation threshold testing was not performed. The ICD pocket was closed in 3 layers with absorbable monocryl sutures and edgard. Appropriate dressing was applied. The patient left the cardiac catheterization laboratory in stable condition. Defibrillation testing: Not done Serial Numbers: 1. Device: SJM QUADRA NADIA MP, 3369-40Q. SN: [id number] 2. Atrial Lead: MDT 5076-45. SN: [id number] (CHRONIC) 3. Right Ventricular Lead: SJM DURATA, 7122Q/52. SN: [id number] 4. Left Ventricular Lead: SJM QUARTET, 1457Q/75. SN: [id number] Stimulation Thresholds & Impedance Measurements: 1. Atrial Lead: 0.5V@0.5ms / 3.mV / 400 ohm 2. Right Ventricular Lead: 0.75V@0.5ms / 0.0mV / 560 ohm 3. Left Ventricular Lead: 1.25V@0.5ms / 8.1mV (paced) / 730 ohm Enoch Pacing Parameters: 1. Pacing mode: DDDR 2. Lower rate: 70 3. Upper rate: 120 Tachycardia therapy parameters: VF zone : Detection: 200bpm First therapy: ATP while charging / 36 Joule Subsequent therapies: 40 Joule x 5 VT zone : Detection: 150 bpm VT1 / 179 bpm VT 2 First therapy burst pacing at 85 %tachycardia CL, 8 beats, 3sequences Second therapy: 36 Joule Subsequent therapies: 40 Joule x5 Patient Problems: Problems Problem Status Onset Cellulitis Acute Necrotic eschar Acute Traumatic hematoma of left lower leg with infection Acute
[2018-05-07] MEDS: FUROSEMIDE 40 MG TAB PO SCH ×2 (13:40→15:50)
--- NOTE | 2018-05-07 15:51 | CPEKG ---
Test Reason : OPEN Blood Pressure : / mmHG Vent. Rate : 070 BPM Atrial Rate : 000 BPM P-R Int : 067 ms QRS Dur : 171 ms QT Int : 581 ms P-R-T Axes : 000 -82 071 degrees QTc Int : 628 ms Ventricular-paced complexes Confirmed by Isaiah Hayes ([id number]) on 05/07/2018 3:51:03 PM Referred By: Isaiah Hayes Confirmed By:Isaiah Hayes
--- NOTE | 2018-05-07 15:54 | CPEKG ---
Test Reason : OPEN Blood Pressure : / mmHG Vent. Rate : 060 BPM Atrial Rate : 061 BPM P-R Int : 135 ms QRS Dur : 199 ms QT Int : 576 ms P-R-T Axes : 009 082 -50 degrees QTc Int : 576 ms Ventricular-paced complexes Confirmed by Isaiah Hayes ([id number]) on 05/07/2018 3:53:51 PM Referred By: Isaiah Hayes Confirmed By:Isaiah Hayes
[2018-05-07] MEDS ORDERED: BUDESONIDE 3 MG EC CAP PO SCH (16:30)
[2018-05-07] MEDS: CARVEDILOL 6.25 MG TAB PO SCH (18:12)
[2018-05-07] MEDS ORDERED: ASPIRIN 81 MG CHEWABLE TAB PO SCH (21:00)
[2018-05-07] MEDS ORDERED: TAMSULOSIN HCL 0.4 MG CAP PO SCH (21:00)
[2018-05-07] MEDS ORDERED: ZOLPIDEM TARTRATE 5 MG TAB PO SCH (21:00)
[2018-05-07] MEDS ORDERED: MIRTAZAPINE 15 MG TAB PO SCH (21:00)
[2018-05-07] MEDS ORDERED: FAMOTIDINE 20 MG TAB PO SCH (21:00)
[2018-05-07] MEDS ORDERED: ATORVASTATIN CALCIUM 10 MG TAB PO SCH (21:00)
[2018-05-07] MEDS: ACYCLOVIR 200 MG CAP PO SCH (21:33)
[2018-05-07] MEDS: CHOLESTYRAMINE/SUCROSE 4 GM PKT PO SCH (21:33)
[2018-05-08] MEDS ORDERED: OXYCODONE/APAP 5/325 TAB PO PRN
[2018-05-08 05:36] LABS: INR 1.37 (0.83-1.16)
[2018-05-08 05:38] LABS: PLATELET COUNT 201 10^3/uL (150-400)
[2018-05-08] MEDS ORDERED: LEVOTHYROXINE 150 MCG TAB PO SCH (06:00)
[2018-05-08] MEDS: FUROSEMIDE 40 MG TAB PO SCH ×2 (06:41→11:47)
[2018-05-08 07:21] VITALS: BP 120/76
[2018-05-08] MEDS ORDERED: WARFARIN SODIUM 2.5 MG TAB PO SCH (08:00)
[2018-05-08] MEDS ORDERED: ALLOPURINOL 100 MG TAB PO SCH (09:00)
[2018-05-08] MEDS ORDERED: MULTIVITAMINS 1 EACH TAB PO SCH (09:00)
[2018-05-08] MEDS ORDERED: POTASSIUM CL 20 MEQ TAB PO SCH (09:00)
[2018-05-08] MEDS ORDERED: GLUCOSAMINE/CHONDROITIN CAP PO SCH (09:00)
[2018-05-08] MEDS ORDERED: SPIRONOLACTONE 25 MG TAB PO SCH (09:00)
[2018-05-08] MEDS ORDERED: AMIODARONE HCL 200 MG TAB PO SCH (09:00)
[2018-05-08] MEDS: CARVEDILOL 6.25 MG TAB PO SCH (09:47)
[2018-05-08] MEDS: ACYCLOVIR 200 MG CAP PO SCH (09:48)
[2018-05-08] MEDS: CHOLESTYRAMINE/SUCROSE 4 GM PKT PO SCH (10:01)
--- NOTE | 2018-05-08 11:46 | CPEKG ---
Test Reason : OPEN Blood Pressure : / mmHG Vent. Rate : 070 BPM Atrial Rate : 000 BPM P-R Int : 026 ms QRS Dur : 158 ms QT Int : 556 ms P-R-T Axes : -56 204 080 degrees QTc Int : 601 ms A V-paced rhythm Confirmed by Isaiah Hayes ([id number]) on 05/08/2018 11:46:19 AM Referred By: Isaiah Hayes Confirmed By:Isaiah Hayes
--- NOTE | 2018-05-08 12:37 | ASDISCHSUM ---
Discharge Information Plan Status:Home with No Needs Medically Cleared to Leave:05/07/2018 Discharge Date:05/08/2018 12:27 PM CM D/C Disposition:Home, Routine, Self-Care ADT D/C Disposition:Home, Routine, Self-Care Projected Discharge Date:05/08/2018 12:27 PM Transportation at D/C: Discharge Delay Reason: Follow-Up Date:05/08/2018 12:27 PM Discharge Slot: Final Diagnosis: Placement Information Patient Contact Information Contact Name:DIANA Relationship: Address:[address] Work Phone: City:[place] Alternate Phone: State/Zip Code:[place] [address] Email: Financial Information Financial Class:Worker's Compensation Primary Plan Desc: DEPARTMENT OF LABOR Primary Plan Number:[id number] Secondary Plan Desc:MEDICARE OUTPATIENT Secondary Plan Number:[id number] Assessment Information LACE LACE Length of stay for Answers: 1 day current admission Acuity / Level of Answers: No Care: Did the patient have an inpatient admission? Comorbidities - select Answers: Any tumor (including all that apply lymphoma or leukemia) Congestive heart failure Coronary Artery Disease Moderate or severe liver or renal disease Other Notes: HTN; AFib # of Emergency department Answers: 1-2 visits in the last 6 months Score: 13 Date Signed: 05/08/2018 12:36 PM Electronically Signed By:Elsie Holguin RN Intervention Information Intervention Type:HENRY-Signed Date of Service:05/08/2018 11:24 AM Patient Type:Observation Staff Member:Erika Guzman Hours: Discipline: Severity: Comment:
--- NOTE | 2018-05-08 17:36 | GDS ---
[f rep st] DISCHARGE SUMMARY SUPERVISING [employer] MANAGER: Isaiah Hayes MD ADMISSION DIAGNOSIS: Congestive heart failure. DISCHARGE DIAGNOSIS: Congestive heart failure, status post upgrade to a biventricular implantable ca rdioverter defibrillator. PROCEDURE PERFORMED DURING HOSPITALIZATION: 1. Electrocardiogram. 2. Chest x-ray. 3. Upgrade of a dual-chamber permanent pacemaker to a biventricular ICD. HOSPITAL COURSE: Patient presented 05/07/2018, for upgrade of his dual-chamber permanent pacemaker t o a biventricular ICD in the setting of cardiomyopathy and exacerbation of congestive heart failure s ymptoms. He underwent successful upgrade to a biventricular ICD with Dr. Isaiah Hayes without any proc edure complications. He has done very well in the postprocedure setting with device interrogation th morning demonstrating normal device function and chest x-ray demonstrating appropriate placement o f all of his implanted leads. He has been up ambulating around his room this morning without issue, and he is appropriate and stable for discharge home today. PHYSICAL EXAM: GENERAL: He is alert and oriented x4, in no apparent distress. VITAL SIGNS: Blood pressure 120/76, heart rate 70, respiratory rate 13, SpO2 97% on room air, temp 36.4 degrees Celsius. RESPIRATORY: Lungs are clear to auscultation without adventitious breath sounds mildly diminished in the bases. CARDIAC: Normal S1, S2. No S3, S4. Rhythm is regular. ABDOMEN: Normoactive bowel sounds times all 4 quadrants. No masses or tenderness. Abdomen is soft to palpation. SKIN: [place], warm, dry without cyanosis, clubbing, or peripheral edema. Left pectoral incision is covered with a clean and dry dressing. No evidence of hematoma, redness, or oozing to this site. EXTREMITIES: Pul ses 2+ bilaterally, no edema. LABORATORY STUDIES: Drawn today: CBC is more or less stable compared to preprocedure. Creatinine i s stable at 2.4. INR is 1.37. PROCEDURES: Upgrade of a dual-chamber permanent pacemaker to biventricular ICD as mentioned above. Chest x-ray this morning demonstrates appropriate lead placement of all implanted leads. Echocardiogram this morning demonstrates AV paced rhythm with a ventricular rate of 70 bpm and a narr ow QRS complex. DISCHARGE DISPOSITION: Patient will be discharged home in stable condition. See under activity rest rictions as below. DISCHARGE MEDICATIONS: Please see discharge medication reconciliation sheet for full details. Luz bermudez note, the patient has been restarted on his Coumadin at this time. DISCHARGE INSTRUCTIONS: Post defibrillator implant instructions reviewed with patient and his i n detail. We discussed activity restrictions, including avoidance of lifting his left arm above the level of his shoulder for 6 weeks. He will keep his left pectoral dressing clean and dry, and he leodan l present to our [facility] in 1 week to have his dressing and edgard removed. If his dressing becomes saturated at any point in the meantime, he will remove the dressing and leave hi s incision open to air. He will follow up with Dr. Hayes in 1 month, sooner for any new or concerning symptoms. TIME SPENT ON DISCHARGE: Greater than 30 minutes. /[id number]/MODL
== END 2018-05-08 12:27 | disposition home or self-care (01) ==
LOC: FCATH 06:56 → F2N 11:12 → F2W 13:30
PROVIDERS: ADMIT Internal Medicine Cardiovascular Disease; ATTEND Internal Medicine Cardiovascular Disease
DX: Z45.02 Encounter for adjustment and management of automatic implantable cardiac defibrillator (principal); I50.9 Heart failure, unspecified; I42.9 Cardiomyopathy, unspecified; I44.2 Atrioventricular block, complete; N19 Unspecified kidney failure
CPT/HCPCS: 33224; 71045; 71046; 93005; C1769; G0378; C1777; C1882; C1900; J0690; J2370; J2704; J3010; Q9967

== ENCOUNTER 2018-06-11 13:15 | Inpatient (IN) | payer OTHER, MEDICARE ==
[2018-06-11 13:46] LABS: PLATELET COUNT 364 10^3/uL (150-400)
--- NOTE | 2018-06-11 13:48 | EDPHY ---
H & P Stated Complaint: elevated wbc and creat Time Seen by Provider: 06/11/18 13:29 HPI/ROS: CHIEF COMPLAINT: Fever, shortness of breath HISTORY OF PRESENT ILLNESS: 72-year-old male with chronic renal insufficiency and amyloidosis presents with a 2 week history of fever and cough. Onset of fever 2 weeks ago, associated with a dry cough and shaking chills. Gradually increasing shortness of breath over the past week. He was seen by his physician yesterday. Influenza positive, placed on Tamiflu. Creatinine 3.2 yesterday, increased from baseline. Chest x-ray was reportedly negative. Since that visit, the patient had increasing shortness of breath and generalized weakness. Now short of breath when walking from his bedroom to the bathroom. Tolerating oral fluids well. REVIEW OF SYSTEMS: complete 10 point ROS reviewed and is negative except for the noted elements in the HPI - Personal History Current Tetanus Diphtheria and Acellular Pertussis (TDAP): Yes Tetanus Vaccine Date: <10 YRS - Medical/Surgical History Hx Asthma: No Hx Chronic Respiratory Disease: No Hx Diabetes: No Hx Cardiac Disease: Yes Hx Renal Disease: Yes Hx Cirrhosis: No Hx Alcoholism: Yes Hx HIV/AIDS: No Hx Splenectomy or Spleen Trauma: No Other PMH: CHF, Pacemaker, CKD stage 4, afib, amyloidosis - Social History Smoking Status: Never smoked - Physical Exam Exam: General Appearance: Alert, pleasant, nontoxic-appearing Eyes: Pupils equal and round, no conjunctival pallor or injection ENT, Mouth: Mucous membranes moist Neck: Normal inspection Respiratory: Rales at the right base Cardiovascular: Regular rate and rhythm Gastrointestinal: Abdomen is distended and nontender Neurological: A&O, nonfocal exam Skin: Warm and dry, no rash Extremities: Nontender, no pedal edema Psychiatric: Mood and affect normal Constitutional: Initial Vital Signs Temperature (C) 36.5 C 06/11/18 13:19 Heart Rate 77 06/11/18 13:19 Respiratory Rate 18 06/11/18 13:19 Blood Pressure 112/64 06/11/18 13:19 O2 Sat (%) 96 06/11/18 13:19 O2 Delivery Mode Room Air Allergies/Adverse Reactions: HORSERADISH Allergy (Uncoded 06/11/18 13:18) Rash Home Medications: Medication Instructions Recorded Allopurinol [Allopurinol 100 MG 100 mg PO DAILY #0 05/24/17 (*)] Aspirin [Aspirin 81mg (*)] 81 mg PO HS #0 05/24/17 Atorvastatin Calcium [Lipitor 10 10 mg PO HS #0 05/24/17 mg (*)] Budesonide [Budesonide EC] 6 mg PO DAILY@1630 #0 05/24/17 Carvedilol [Coreg (*)] 18.75 mg PO BIDMEAL #0 05/24/17 Cholestyramine (with Sugar) 4 gm PO BID #0 05/24/17 [Cholestyramine Packet] Furosemide [Lasix 40 MG (*)] 40 mg PO TID@,1630 #0 05/24/17 Glucosamine/Chondroitin 1 each PO DAILY #0 05/24/17 [Glucosamine/Chondroitin (*)] Levothyroxine [Synthroid 150 mcg 150 mcg PO DAILY06 #0 05/24/17 (*)] MIRTAZAPINE [Remeron 7.5 mg] 7.5 mg PO HS #0 05/24/17 Multivitamins [Multivitamin (*)] 1 each PO DAILY #0 05/24/17 Potassium Cl [Klor-Con 20 meq (*)] 20 meq PO DAILY #0 05/24/17 Tamsulosin HCl [Flomax 0.4 MG (*)] 0.4 mg PO HS #0 05/24/17 Zolpidem Tartrate [Ambien 5MG (*)] 5 mg PO HS #0 05/24/17 Warfarin Sodium [Coumadin 2.5MG 1.25 mg PO MWF #0 07/26/17 (*)] Acetaminophen [Tylenol ES 500 mg 1,000 mg PO DAILY PRN #0 12/20/17 (*)] Amiodarone HCl [Pacerone (*)] 200 mg PO DAILY #0 12/20/17 Spironolactone [Aldactone 25 MG 12.5 mg PO DAILY #0 12/20/17 (*)] Herbals/Supplements -Info Only 1 each PO DAILY 03/05/18 Ranitidine HCl [Zantac] 150 mg PO HS 03/05/18 Warfarin Sodium [Coumadin 2.5MG 2.5 mg PO SUTUTHSA 03/05/18 (*)] Acyclovir [Zovirax 200 mg (*)] 200 mg PO BID 05/01/18 Tamiflu 06/11/18 Medical Decision Making - Diagnostics EKG Interpretation: EKG interpreted by me reveals a ventricular paced rhythm, rate 72. Interpretation: Abnormal EKG Imaging Results: Imaging Impressions Chest X-Ray 06/11/18 13:32 Impression: 1. Pacemaker without pneumothorax. 2. Bronchitis/airways disease. 3. No congestive heart failure or pneumonia. Imaging: I viewed and interpreted images myself ED Course/Re-evaluation: This patient presents with a 2 week history of fever, cough and gradually increasing shortness of breath. Influenza positive yesterday. Presentation is concerning for pneumonia. Does not meet SIRS criteria and initial lactate is normal. Blood cultures were drawn and repeat chest x-ray ordered. Chest x-ray reveals no obvious infiltrate. However, given clinical suspicion, blood cultures were drawn and Rocephin and Zithromax IV given. Gentle IV fluids initiated. The hospitalist service was consulted for admission. Patient was stable throughout his emergency department stay. Differential Diagnosis: Differential diagnosis includes though it is not limited to pneumonia, pneumothorax, pulmonary embolism, aortic dissection, pericarditis, acute coronary syndrome. - Data Points Laboratory Results: Laboratory Results 06/11/18 13:30 06/11/18 13:30 06/11/18 06/11/18 06/11/18 14:18 13:33 13:30 WBC RBC Hgb POC Hgb 12.6 gm/dL L gm/dL (13.7-17.5) Hct POC Hct 37 % L % (40-51) MCV MCH MCHC RDW Plt Count MPV Neut % (Auto) Lymph % (Auto) [place] % (Auto) Eos % (Auto) Baso % (Auto) Nucleat RBC Rel Count Absolute Neuts (auto) Absolute Lymphs (auto) Absolute Monos (auto) Absolute Eos (auto) Absolute Basos (auto) Absolute Nucleated RBC Immature Gran % Seg Neutrophils % Band Neutrophils % Lymphocytes % Monocytes % Eosinophils % Basophils % Metamyelocytes % Myelocytes % Promyelocytes % Blast Cells % Immature Gran # Absolute Seg Neuts Absolute Band Neuts Absolute Lymphocytes Absolute Monocytes Absolute Eosinophils Absolute Basophils Absolute Metamyelocyte Absolute Myelocytes Absolute Promyelocytes Absolute Plasma Cells Nucleated RBCs Absolute Blast Cells Plasma Cells % Platelet Estimate Polychromasia Hypochromasia Oval Macrocytes Elliptocytes Smear Review By PT 28.1 SEC H SEC (12.0-15.0) INR 2.80 H (0.83-1.16) VBG Lactic Acid 0.8 mmol/L mmol/L (0.7-2.1) POC Sodium 139 mEq/L mEq/L (135-145) Sodium POC Potassium 3.7 mEq/L mEq/L (3.3-5.0) Potassium POC Chloride 105 mEq/L mEq/L (97-110) Chloride Carbon Dioxide POC Total CO2 22 mEq/L mEq/L (22-31) Anion Gap POC BUN 42 mg/dL H mg/dL (7-23) BUN Creatinine POC Creatinine 3.5 mg/dL H mg/dL (0.7-1.3) Estimated GFR Glucose POC Glucose 104 mg/dL H mg/dL (70-100) Calcium Total Bilirubin Conjugated Bilirubin Unconjugated Bilirubin AST ALT Alkaline Phosphatase Total Protein Albumin 06/11/18 06/11/18 13:30 13:30 WBC 14.52 10^3/uL H 10^3/uL (3.80-9.50) RBC 4.07 10^6/uL L 10^6/uL (4.40-6.38) Hgb 11.3 g/dL L g/dL (13.7-17.5) POC Hgb Hct 36.1 % L % (40.0-51.0) POC Hct MCV 88.7 fL fL (81.5-99.8) MCH 27.8 pg L pg (27.9-34.1) MCHC 31.3 g/dL L g/dL (32.4-36.7) RDW 18.5 % H % (11.5-15.2) Plt Count 364 10^3/uL 10^3/uL (150-400) MPV 11.6 fL fL (8.7-11.7) Neut % (Auto) Not Reported Lymph % (Auto) Not Reported [place] % (Auto) Not Reported Eos % (Auto) Not Reported Baso % (Auto) Not Reported Nucleat RBC Rel Count Not Reported Absolute Neuts (auto) Not Reported Absolute Lymphs (auto) Not Reported Absolute Monos (auto) Not Reported Absolute Eos (auto) Not Reported Absolute Basos (auto) Not Reported Absolute Nucleated RBC Not Reported Immature Gran % Not Reported Seg Neutrophils % 85.9 % % Band Neutrophils % 0.0 % % Lymphocytes % 4.0 % % Monocytes % 8.1 % % Eosinophils % 1.0 % % Basophils % 0.0 % % Metamyelocytes % 0.0 % % Myelocytes % 0.0 % % Promyelocytes % 1.0 % % Blast Cells % 0.0 % % Immature Gran # Not Reported Absolute Seg Neuts 12.47 10^3/uL H 10^3/uL (1.70-6.50) Absolute Band Neuts 0.00 10^3/uL 10^3/uL (0.00-0.70) Absolute Lymphocytes 0.58 10^3/uL L 10^3/uL (1.00-3.00) Absolute Monocytes 1.18 10^3/uL H 10^3/uL (0.30-0.80) Absolute Eosinophils 0.15 10^3/uL 10^3/uL (0.03-0.40) Absolute Basophils 0.00 10^3/uL L 10^3/uL (0.02-0.10) Absolute Metamyelocyte 0.00 10^3/mL 10^3/mL (0.00-0.00) Absolute Myelocytes 0.00 10^3/mL 10^3/mL (0.00-0.00) Absolute Promyelocytes 0.15 10^3/uL H 10^3/uL (0.00-0.00) Absolute Plasma Cells 0.00 10^3/uL 10^3/uL (0.00-0.00) Nucleated RBCs 0 /100 WBC /100 WBC (0-0) Absolute Blast Cells 0.00 10^3/uL 10^3/uL (0.00-0.00) Plasma Cells % 0.0 % % Platelet Estimate ADEQUATE (ADEQ) Polychromasia 1+ H Hypochromasia 1+ H Oval Macrocytes 1+ H Elliptocytes 1+ H Smear Review By Pending PT INR VBG Lactic Acid POC Sodium Sodium 138 mEq/L mEq/L (135-145) POC Potassium Potassium 3.8 mEq/L mEq/L (3.5-5.2) POC Chloride Chloride 103 mEq/L mEq/L (97-110) Carbon Dioxide 21 mEq/l L mEq/l (22-31) POC Total CO2 Anion Gap 14 mEq/L mEq/L (6-14) POC BUN BUN 52 mg/dL H mg/dL (7-23) Creatinine 3.2 mg/dL H mg/dL (0.7-1.3) POC Creatinine Estimated GFR 19 Glucose 102 mg/dL H mg/dL (70-100) POC Glucose Calcium 8.8 mg/dL mg/dL (8.5-10.4) Total Bilirubin 0.5 mg/dL mg/dL (0.1-1.4) Conjugated Bilirubin 0.5 mg/dL mg/dL (0.0-0.5) Unconjugated Bilirubin 0.0 mg/dL mg/dL (0.0-1.1) AST 39 IU/L IU/L (17-59) ALT 133 IU/L H IU/L (21-72) Alkaline Phosphatase 135 IU/L H IU/L (38-126) Total Protein 6.0 g/dL L g/dL (6.3-8.2) Albumin 3.1 g/dL L g/dL (3.5-5.0) Medications Given: Discontinued Medications Ceftriaxone Sodium/Dextrose (Rocephin 1 Gm (Premix)) 50 mls @ 100 mls/hr IV EDNOW ONE PRN Reason: Protocol Stop: 06/11/18 14:18 Last Admin: 06/11/18 14:26 Dose: 50 mls Point of Care Test Results: Chemistry 06/11/18 13:30 POC Sodium 139 mEq/L mEq/L (135-145) POC Potassium 3.7 mEq/L mEq/L (3.3-5.0) POC Chloride 105 mEq/L mEq/L (97-110) POC Total CO2 22 mEq/L mEq/L (22-31) POC BUN 42 mg/dL H mg/dL (7-23) POC Creatinine 3.5 mg/dL H mg/dL (0.7-1.3) POC Glucose 104 mg/dL H mg/dL (70-100) ISTAT H&H 06/11/18 13:30 POC Hgb 12.6 gm/dL L gm/dL (13.7-17.5) POC Hct 37 % L % (40-51) Departure - Departure Disposition: [facility] Inpatient Acute Clinical Impression: Pneumonia Qualifiers: Pneumonia type: due to unspecified organism Laterality: unspecified laterality Lung location: unspecified part of lung Qualified Code(s): J18.9 - Pneumonia, unspecified organism Condition: Fair
[2018-06-11] MEDS ORDERED: AZITHROMYCIN IV 500 MG in NS 250 ML IV ONE (13:49)
[2018-06-11 14:08] LABS: INR 2.8 (0.83-1.16); PROTIME(PATIENT) 28.1 SEC (12.0-15.0)
--- NOTE | 2018-06-11 15:04 | CPEKG ---
Test Reason : OPEN Blood Pressure : / mmHG Vent. Rate : 072 BPM Atrial Rate : 000 BPM P-R Int : 034 ms QRS Dur : 169 ms QT Int : 507 ms P-R-T Axes : 000 233 047 degrees QTc Int : 556 ms Ventricular-paced rhythm Confirmed by Aiyana Jimenez ([id number]) on 06/11/2018 3:03:53 PM Referred By: AIYANA JIMENEZ Confirmed By:Aiyana Jimenez
[2018-06-11] MEDS ORDERED: ONDANSETRON 4 MG/2 ML VIAL IVP PRN (16:16)
[2018-06-11] MEDS ORDERED: ONDANSETRON DISINTEGRATING 4 MG TAB PO PRN (16:16)
[2018-06-11] MEDS ORDERED: ACETAMINOPHEN 325 MG TAB PO PRN (16:16)
[2018-06-11] MEDS ORDERED: NS 1,000 ML IV SCH (16:30)
--- NOTE | 2018-06-11 16:37 | PDGENHP ---
<Elayne Bone - Last Filed: 06/11/18 17:42> History and Physical - Chief Complaint Tiredness, lightheadedness, cough - History of Present Illness 72 y/o male w/ hx of atrial fibrillation on coumadin, CKD IV, CHF II, pacemaker and amyloidosis presents to emergency room w/ 2 weeks worth of tiredness, lightheadedness while upright and a non-productive dry cough. He also reports occasional shortness of breath, most notably after he takes a shower however has been saturating on RA 96-98% here. Endorses low-grade fevers (max 101.0F). Yesterday, he saw his PCP who performed an inconclusive influenza test but said he most likely had influenza; started pt on Tamiflu. Denies CP, palpitations, dysuria, diarrhea, constipation, nausea. He is being admitted for further diagnostic work-up, treatment and monitoring. History Information - Allergies/Home Medication List Allergies/Adverse Reactions: HORSERADISH Allergy (Uncoded 06/11/18 13:18) Rash Home Medications: Allopurinol [Allopurinol 100 MG (*)] 100 mg PO DAILY #0 05/24/17 [Last Taken ] Aspirin [Aspirin 81mg (*)] 81 mg PO HS #0 05/24/17 [Last Taken 06/10/18] Atorvastatin Calcium [Lipitor 10 mg (*)] 10 mg PO DAILY #0 05/24/17 [Last Taken 06/11/18] Budesonide [Budesonide EC] 6 mg PO DAILY@1800 #0 05/24/17 [Last Taken 06/10/18] Cholestyramine (with Sugar) [Cholestyramine Packet] 4 gm PO DAILY #0 05/24/17 [ Last Taken 06/10/18] Furosemide [Lasix 40 MG (*)] 40 mg PO TID@06,12,1630 #0 05/24/17 [Last Taken ] Glucosamine/Chondroitin [Glucosamine/Chondroitin (*)] 1 each PO DAILY #0 [Last Taken 06/11/18] Levothyroxine [Synthroid 150 mcg (*)] 150 mcg PO DAILY06 #0 05/24/17 [Last Taken 06/11/18] MIRTAZAPINE [Remeron 7.5 mg] 3.75 mg PO HS #0 05/24/17 [Last Taken 06/10/18] Multivitamins [Multivitamin (*)] 1 each PO DAILY #0 05/24/17 [Last Taken ] Potassium Cl [Klor-Con 20 meq (*)] 20 meq PO DAILY #0 05/24/17 [Last Taken 06/11] Tamsulosin HCl [Flomax 0.4 MG (*)] 0.4 mg PO HS #0 05/24/17 [Last Taken 06/10/18 ] Zolpidem Tartrate [Ambien 5MG (*)] 5 - 10 mg PO HS PRN #0 05/24/17 [Last Taken 1 Day Ago ~03/27/18] Warfarin Sodium [Coumadin 2.5MG (*)] 1.25 mg PO MWF #0 07/26/17 [Last Taken ] Acetaminophen [Tylenol ES 500 mg (*)] 1,000 mg PO DAILY PRN #0 12/20/17 [Last Taken 1 Day Ago ~03/27/18] Amiodarone HCl [Pacerone (*)] 200 mg PO DAILY #0 12/20/17 [Last Taken 06/11/18] Spironolactone [Aldactone 25 MG (*)] 12.5 mg PO DAILY #0 12/20/17 [Last Taken ] Herbals/Supplements -Info Only 1 each PO DAILY 03/05/18 [Last Taken 1 Day Ago ~ 03/27/18] Ranitidine HCl [Zantac] 150 mg PO HS 03/05/18 [Last Taken 06/10/18] Warfarin Sodium [Coumadin 2.5MG (*)] 2.5 mg PO SUTUTHSA 03/05/18 [Last Taken ] Acyclovir [Zovirax 200 mg (*)] 200 mg PO BID 05/01/18 [Last Taken 06/11/18] Carvedilol 18.75 mg PO BID 06/11/18 [Last Taken 06/11/18] Oseltamivir Phosphate [Tamiflu] 30 mg PO DAILY 06/11/18 [Last Taken 06/10/18] I have personally reviewed and updated: family history, medical history, social history, surgical history - Past Medical History Additional medical history: 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, received chemotherapy in 2013, recent free light chain ration within normal limits), 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%), CKD stage 4 (previously on HD in 2012), atrial fibrillation on warfarin, recent upgrade of PM to BIVICD in 2018, JEB on CPAP, hypothyroidism - Surgical History Additional surgical history: pacemaker placement, renal biopsy, thyroidectomy, AV fistula formation now s/p take down, hernia repair, cholecystectomy, appendectomy, rotator cuff repair - Family History Positive for: non-pertinent - Social History Smoking Status: Never smoked Alcohol Use: None Drug Use: None Additional social history: Lives w/ in [place] Review of Systems Review of Systems: ROS: 10pt was reviewed & negative except for what was stated in HPI & below Physical Exam Physical Exam: Lab data and imaging reviewed. Case discussed w/ admitting physician, Dr. Hernan Santoyo WBC: 14.52 INR: 2.80 Lactic Acid: 0.8 BUN/Cr: 52/3.2 GFR: 19 ALT/Alk Phos: 133/135 CXR: Bronchitis/airway disease. No indication of PNA or CHF EKG: Ventricular paced Temp Pulse Resp BP Pulse Ox 36.5 C 71 16 114/69 97 06/11/18 13:19 06/11/18 14:55 06/11/18 14:55 06/11/18 14:55 06/11/18 14:55 Constitutional: appears nourished, not in pain, other (Mildly distressed male, pleasant and cooperative w/ occasional dry cough ) Eyes: PERRL, anicteric sclera, EOMI Ears, Nose, Mouth, Throat: moist mucous membranes, hearing normal, ears appear normal, no oral mucosal ulcers Cardiovascular: regular rate and rhythym, no murmur, rub, or gallop, No edema Peripheral Pulses: 2+: dorsalis-pedis (R) (Radial 2+), dorsalis-pedis (L) ( Radial 2+) Respiratory: reduced air movement (Throughout) Gastrointestinal: normoactive bowel sounds, soft, non-tender abdomen, no palpable masses Genitourinary: no bladder fullness, no bladder tenderness Skin: warm, normal color, no rashes or abrasions, no fluctuance, no induration, No mottled Musculoskeletal: full muscle strength, no muscle tenderness, normal joint ROM, no joint effusions Neurologic: AAOx3, sensation intact bilaterally, CN II-XII Intact Psychiatric: interacting appropriately, not anxious, not encephalopathic, thought process linear Lymph, Heme, Immunologic: no cervical LAD, no supraclavicular LAD Lab Data & Imaging Review 06/11/18 13:30 06/11/18 13:30 WBC 14.52 10^3/uL (3.80-9.50) H 06/11/18 13:30 RBC 4.07 10^6/uL (4.40-6.38) L 06/11/18 13:30 Hgb 11.3 g/dL (13.7-17.5) L 06/11/18 13:30 POC Hgb 12.6 gm/dL (13.7-17.5) L 06/11/18 13:30 Hct 36.1 % (40.0-51.0) L 06/11/18 13:30 POC Hct 37 % (40-51) L 06/11/18 13:30 MCV 88.7 fL (81.5-99.8) 06/11/18 13:30 MCH 27.8 pg (27.9-34.1) L 06/11/18 13:30 MCHC 31.3 g/dL (32.4-36.7) L 06/11/18 13:30 RDW 18.5 % (11.5-15.2) H 06/11/18 13:30 Plt Count 364 10^3/uL (150-400) 06/11/18 13:30 MPV 11.6 fL (8.7-11.7) 06/11/18 13:30 Neut % (Auto) Not Reported 06/11/18 13:30 Lymph % (Auto) Not Reported 06/11/18 13:30 Bureau % (Auto) Not Reported 06/11/18 13:30 Eos % (Auto) Not Reported 06/11/18 13:30 Baso % (Auto) Not Reported 06/11/18 13:30 Nucleat RBC Rel Count Not Reported 06/11/18 13:30 Absolute Neuts (auto) Not Reported 06/11/18 13:30 Absolute Lymphs (auto) Not Reported 06/11/18 13:30 Absolute Monos (auto) Not Reported 06/11/18 13:30 Absolute Eos (auto) Not Reported 06/11/18 13:30 Absolute Basos (auto) Not Reported 06/11/18 13:30 Absolute Nucleated RBC Not Reported 06/11/18 13:30 Immature Gran % Not Reported 06/11/18 13:30 Seg Neutrophils % 85.9 % 06/11/18 13:30 Band Neutrophils % 0.0 % 06/11/18 13:30 Lymphocytes % 4.0 % 06/11/18 13:30 Monocytes % 8.1 % 06/11/18 13:30 Eosinophils % 1.0 % 06/11/18 13:30 Basophils % 0.0 % 06/11/18 13:30 Metamyelocytes % 0.0 % 06/11/18 13:30 Myelocytes % 0.0 % 06/11/18 13:30 Promyelocytes % 1.0 % 06/11/18 13:30 Blast Cells % 0.0 % 06/11/18 13:30 Immature Gran # Not Reported 06/11/18 13:30 Absolute Seg Neuts 12.47 10^3/uL (1.70-6.50) H 06/11/18 13:30 Absolute Band Neuts 0.00 10^3/uL (0.00-0.70) 06/11/18 13:30 Absolute Lymphocytes 0.58 10^3/uL (1.00-3.00) L 06/11/18 13:30 Absolute Monocytes 1.18 10^3/uL (0.30-0.80) H 06/11/18 13:30 Absolute Eosinophils 0.15 10^3/uL (0.03-0.40) 06/11/18 13:30 Absolute Basophils 0.00 10^3/uL (0.02-0.10) L 06/11/18 13:30 Absolute Metamyelocyte 0.00 10^3/mL (0.00-0.00) 06/11/18 13:30 Absolute Myelocytes 0.00 10^3/mL (0.00-0.00) 06/11/18 13:30 Absolute Promyelocytes 0.15 10^3/uL (0.00-0.00) H 06/11/18 13:30 Absolute Plasma Cells 0.00 10^3/uL (0.00-0.00) 06/11/18 13:30 Nucleated RBCs 0 /100 WBC (0-0) 06/11/18 13:30 Absolute Blast Cells 0.00 10^3/uL (0.00-0.00) 06/11/18 13:30 Plasma Cells % 0.0 % 06/11/18 13:30 Platelet Estimate ADEQUATE (ADEQ) 06/11/18 13:30 Polychromasia 1+ H 06/11/18 13:30 Hypochromasia 1+ H 06/11/18 13:30 Oval Macrocytes 1+ H 06/11/18 13:30 Elliptocytes 1+ H 06/11/18 13:30 PT 28.1 SEC (12.0-15.0) H 06/11/18 13:33 INR 2.80 (0.83-1.16) H 06/11/18 13:33 VBG Lactic Acid 0.8 mmol/L (0.7-2.1) 06/11/18 14:18 POC Sodium 139 mEq/L (135-145) 06/11/18 13:30 Sodium 138 mEq/L (135-145) 06/11/18 13:30 POC Potassium 3.7 mEq/L (3.3-5.0) 06/11/18 13:30 Potassium 3.8 mEq/L (3.5-5.2) 06/11/18 13:30 POC Chloride 105 mEq/L (97-110) 06/11/18 13:30 Chloride 103 mEq/L (97-110) 06/11/18 13:30 Carbon Dioxide 21 mEq/l (22-31) L 06/11/18 13:30 POC Total CO2 22 mEq/L (22-31) 06/11/18 13:30 Anion Gap 14 mEq/L (6-14) 06/11/18 13:30 POC BUN 42 mg/dL (7-23) H 06/11/18 13:30 BUN 52 mg/dL (7-23) H 06/11/18 13:30 Creatinine 3.2 mg/dL (0.7-1.3) H 06/11/18 13:30 POC Creatinine 3.5 mg/dL (0.7-1.3) H 06/11/18 13:30 Estimated GFR 06/11/18 13:30 Glucose 102 mg/dL (70-100) H 06/11/18 13:30 POC Glucose 104 mg/dL (70-100) H 06/11/18 13:30 Calcium 8.8 mg/dL (8.5-10.4) 06/11/18 13:30 Total Bilirubin 0.5 mg/dL (0.1-1.4) 06/11/18 13:30 Conjugated Bilirubin 0.5 mg/dL (0.0-0.5) 06/11/18 13:30 Unconjugated Bilirubin 0.0 mg/dL (0.0-1.1) 06/11/18 13:30 AST 39 IU/L (17-59) 06/11/18 13:30 ALT 133 IU/L (21-72) H 06/11/18 13:30 Alkaline Phosphatase 135 IU/L (38-126) H 06/11/18 13:30 Total Protein 6.0 g/dL (6.3-8.2) L 06/11/18 13:30 Albumin 3.1 g/dL (3.5-5.0) L 06/11/18 13:30 Urine Color YELLOW 06/11/18 14:55 Urine Appearance HAZY 06/11/18 14:55 Urine pH 5.0 (5.0-7.5) 06/11/18 14:55 Ur Specific [place] 1.011 (1.002-1.030) 06/11/18 14:55 Urine Protein NEGATIVE (NEGATIVE) 06/11/18 14:55 Urine Ketones NEGATIVE (NEGATIVE) 06/11/18 14:55 Urine Blood NEGATIVE (NEGATIVE) 06/11/18 14:55 Urine Nitrate NEGATIVE (NEGATIVE) 06/11/18 14:55 Urine Bilirubin NEGATIVE (NEGATIVE) 06/11/18 14:55 Urine Urobilinogen NEGATIVE EU (0.2-1.0) 06/11/18 14:55 Ur Leukocyte Esterase 1+ (NEGATIVE) H 06/11/18 14:55 Urine RBC 1-3 /hpf (0-3) 06/11/18 14:55 Urine WBC 15-25 /hpf (0-3) H 06/11/18 14:55 Ur Epithelial Cells TRACE /lpf (NONE-1+) 06/11/18 14:55 Urine Bacteria 2+ /hpf (NONE SEEN) H 06/11/18 14:55 Urine Glucose NEGATIVE (NEGATIVE) 06/11/18 14:55 Assessment & Plan Plan: 72 y/o male w/ hx of recent upgrade PM to BIVICD in 2018, CKD IV not on dialysis, CHF stage II, a-fib, and amyloidosis presents w/ 2 weeks worth of occasional SOB, dry non-productive cough, lightheadedness and tiredness. Differential diagnoses include but not limited to: PNA, PE, influenza, URI, UTI #Suspected upper respiratory infection: He is hemodynamically stable in house, subjective low-grade fevers, occasional SOB, non-productive cough, CXR w/ no indication of infiltrate, respiratory panel negative, leukocytosis. -Chest CT w/o IV contrast pending -Received Azithromycin + Ceftrixone in ED; will cont these abx in AM - covering for atypical CAP -Low suspicion of PE considering life-long AC and is within therapeutic range -CBC/CMP in AM #Urinary tract infection: UA + for leukocyte esterase (1+), WBC (15-25), and bacteria (2+). Trace epithelial cells. Hazy color. Pt reports last UTI was in 2012. -Urine culture pending -Received ceftriaxone in ED; will cont this as coverage for UTI #Acute on chronic kidney failure: BUN/Cr 52/3.2 - baseline is 40/2.4. Does not receive dialysis. Last time was in 2012. He does produce a fair amount of urine. -Nephrology consulted; Dr. Demarco on case. Ordered US Ab Retro today to check for hydronephrosis and evaluate bladder PVR + INR lab and renal function in AM -Received gentle IVF in ED; will cont gentle IVF x 1 bag and reassess status -Avoid nephrotoxic agents. Holding diuretics for now. #Amyloidosis: [place] chain. Followed by Dr. Soliz from [facility]. #Atrial fibrillation: on warfarin, home BB, amiodarone. #Congestive Heart Failure Stage II: BNP 1510, CXR w/ no CHF, he is euvolemic, no BLE edema or JVD. Holding lasix, spironolactone d/t renal function. #Pacemaker: Recently upgraded to BIVICD w/o complications. Diet: Cardiac VTE ppx: SCDs, warfarin Code: Full Dispo: Admit to obs <Raycroft,Santos - Last Filed: 06/11/18 17:56> History and Physical - History of Present Illness Review of Systems Review of Systems: Physical Exam Physical Exam: Temp Pulse Resp BP Pulse Ox 37.1 C 76 18 132/78 H 96 06/11/18 17:30 06/11/18 17:30 06/11/18 17:30 06/11/18 17:30 06/11/18 17:30 Lab Data & Imaging Review 06/11/18 13:30 06/11/18 13:30 WBC 14.52 10^3/uL (3.80-9.50) H 06/11/18 13:30 RBC 4.07 10^6/uL (4.40-6.38) L 06/11/18 13:30 Hgb 11.3 g/dL (13.7-17.5) L 06/11/18 13:30 POC Hgb 12.6 gm/dL (13.7-17.5) L 06/11/18 13:30 Hct 36.1 % (40.0-51.0) L 06/11/18 13:30 POC Hct 37 % (40-51) L 06/11/18 13:30 MCV 88.7 fL (81.5-99.8) 06/11/18 13:30 MCH 27.8 pg (27.9-34.1) L 06/11/18 13:30 MCHC 31.3 g/dL (32.4-36.7) L 06/11/18 13:30 RDW 18.5 % (11.5-15.2) H 06/11/18 13:30 Plt Count 364 10^3/uL (150-400) 06/11/18 13:30 MPV 11.6 fL (8.7-11.7) 06/11/18 13:30 Neut % (Auto) Not Reported 06/11/18 13:30 Lymph % (Auto) Not Reported 06/11/18 13:30 Bureau % (Auto) Not Reported 06/11/18 13:30 Eos % (Auto) Not Reported 06/11/18 13:30 Baso % (Auto) Not Reported 06/11/18 13:30 Nucleat RBC Rel Count Not Reported 06/11/18 13:30 Absolute Neuts (auto) Not Reported 06/11/18 13:30 Absolute Lymphs (auto) Not Reported 06/11/18 13:30 Absolute Monos (auto) Not Reported 06/11/18 13:30 Absolute Eos (auto) Not Reported 06/11/18 13:30 Absolute Basos (auto) Not Reported 06/11/18 13:30 Absolute Nucleated RBC Not Reported 06/11/18 13:30 Immature Gran % Not Reported 06/11/18 13:30 Seg Neutrophils % 85.9 % 06/11/18 13:30 Band Neutrophils % 0.0 % 06/11/18 13:30 Lymphocytes % 4.0 % 06/11/18 13:30 Monocytes % 8.1 % 06/11/18 13:30 Eosinophils % 1.0 % 06/11/18 13:30 Basophils % 0.0 % 06/11/18 13:30 Metamyelocytes % 0.0 % 06/11/18 13:30 Myelocytes % 0.0 % 06/11/18 13:30 Promyelocytes % 1.0 % 06/11/18 13:30 Blast Cells % 0.0 % 06/11/18 13:30 Immature Gran # Not Reported 06/11/18 13:30 Absolute Seg Neuts 12.47 10^3/uL (1.70-6.50) H 06/11/18 13:30 Absolute Band Neuts 0.00 10^3/uL (0.00-0.70) 06/11/18 13:30 Absolute Lymphocytes 0.58 10^3/uL (1.00-3.00) L 06/11/18 13:30 Absolute Monocytes 1.18 10^3/uL (0.30-0.80) H 06/11/18 13:30 Absolute Eosinophils 0.15 10^3/uL (0.03-0.40) 06/11/18 13:30 Absolute Basophils 0.00 10^3/uL (0.02-0.10) L 06/11/18 13:30 Absolute Metamyelocyte 0.00 10^3/mL (0.00-0.00) 06/11/18 13:30 Absolute Myelocytes 0.00 10^3/mL (0.00-0.00) 06/11/18 13:30 Absolute Promyelocytes 0.15 10^3/uL (0.00-0.00) H 06/11/18 13:30 Absolute Plasma Cells 0.00 10^3/uL (0.00-0.00) 06/11/18 13:30 Nucleated RBCs 0 /100 WBC (0-0) 06/11/18 13:30 Absolute Blast Cells 0.00 10^3/uL (0.00-0.00) 06/11/18 13:30 Plasma Cells % 0.0 % 06/11/18 13:30 Platelet Estimate ADEQUATE (ADEQ) 06/11/18 13:30 Polychromasia 1+ H 06/11/18 13:30 Hypochromasia 1+ H 06/11/18 13:30 Oval Macrocytes 1+ H 06/11/18 13:30 Elliptocytes 1+ H 06/11/18 13:30 Smear Review By Chris GRAY MD 06/11/18 13:30 PT 28.1 SEC (12.0-15.0) H 06/11/18 13:33 INR 2.80 (0.83-1.16) H 06/11/18 13:33 VBG Lactic Acid 0.8 mmol/L (0.7-2.1) 06/11/18 14:18 POC Sodium 139 mEq/L (135-145) 06/11/18 13:30 Sodium 138 mEq/L (135-145) 06/11/18 13:30 POC Potassium 3.7 mEq/L (3.3-5.0) 06/11/18 13:30 Potassium 3.8 mEq/L (3.5-5.2) 06/11/18 13:30 POC Chloride 105 mEq/L (97-110) 06/11/18 13:30 Chloride 103 mEq/L (97-110) 06/11/18 13:30 Carbon Dioxide 21 mEq/l (22-31) L 06/11/18 13:30 POC Total CO2 22 mEq/L (22-31) 06/11/18 13:30 Anion Gap 14 mEq/L (6-14) 06/11/18 13:30 POC BUN 42 mg/dL (7-23) H 06/11/18 13:30 BUN 52 mg/dL (7-23) H 06/11/18 13:30 Creatinine 3.2 mg/dL (0.7-1.3) H 06/11/18 13:30 POC Creatinine 3.5 mg/dL (0.7-1.3) H 06/11/18 13:30 Estimated GFR 19 06/11/18 13:30 Glucose 102 mg/dL (70-100) H 06/11/18 13:30 POC Glucose 104 mg/dL (70-100) H 06/11/18 13:30 Calcium 8.8 mg/dL (8.5-10.4) 06/11/18 13:30 Total Bilirubin 0.5 mg/dL (0.1-1.4) 06/11/18 13:30 Conjugated Bilirubin 0.5 mg/dL (0.0-0.5) 06/11/18 13:30 Unconjugated Bilirubin 0.0 mg/dL (0.0-1.1) 06/11/18 13:30 AST 39 IU/L (17-59) 06/11/18 13:30 ALT 133 IU/L (21-72) H 06/11/18 13:30 Alkaline Phosphatase 135 IU/L (38-126) H 06/11/18 13:30 NT-Pro-B Natriuret Pep 1510 pg/mL (0-125) H 06/11/18 13:30 Total Protein 6.0 g/dL (6.3-8.2) L 06/11/18 13:30 Albumin 3.1 g/dL (3.5-5.0) L 06/11/18 13:30 Urine Color YELLOW 06/11/18 14:55 Urine Appearance HAZY 06/11/18 14:55 Urine pH 5.0 (5.0-7.5) 06/11/18 14:55 Ur Specific [place] 1.011 (1.002-1.030) 06/11/18 14:55 Urine Protein NEGATIVE (NEGATIVE) 06/11/18 14:55 Urine Ketones NEGATIVE (NEGATIVE) 06/11/18 14:55 Urine Blood NEGATIVE (NEGATIVE) 06/11/18 14:55 Urine Nitrate NEGATIVE (NEGATIVE) 06/11/18 14:55 Urine Bilirubin NEGATIVE (NEGATIVE) 06/11/18 14:55 Urine Urobilinogen NEGATIVE EU (0.2-1.0) 06/11/18 14:55 Ur Leukocyte Esterase 1+ (NEGATIVE) H 06/11/18 14:55 Urine RBC 1-3 /hpf (0-3) 06/11/18 14:55 Urine WBC 15-25 /hpf (0-3) H 06/11/18 14:55 Ur Epithelial Cells TRACE /lpf (NONE-1+) 06/11/18 14:55 Urine Bacteria 2+ /hpf (NONE SEEN) H 06/11/18 14:55 Urine Glucose NEGATIVE (NEGATIVE) 06/11/18 14:55 Assessment & Plan Assessment: Pneumonia (Acute) Plan: I have reviewed the chart, personally examined, and discussed case with Jesica Bone NP. I agree with her findings as outlined above. Please see my separate note for additional details.
--- NOTE | 2018-06-11 16:58 | GCON ---
[f rep st] CONSULTATION NEPHROLOGY CONSULTATION DATE OF CONSULTATION: 06/11/2018 REASON FOR CONSULTATION: Acute kidney injury on chronic kidney disease. HISTORY OF PRESENT ILLNESS: This is a very pleasant 72-year-old male with a past medical history sig nificant for proteinuric stage 4 chronic kidney disease, secondary to AL amyloidosis. The patient is cared for by my partner, Dr. Raul Ferreira. History is obtained from the medical staff, the medical record, the patient, and his . They are good historians. The patient was in his baseline state of health up until approximately 2 weeks ago. At that time, he noted the onset of the constellation of symptoms, including chills, headache, weakness, and myalgias . The patient has had some mild cough and shortness of breath. He has not had gastrointestinal symp toms. The patient did see his primary care physician, who performed initial influenza screening. Th is was reportedly "borderline positive." The patient has since been on a low dose of Tamiflu. Over this period of time, the patient has continued to have ongoing symptoms, and has developed worsening weakness and overt dizziness. The patient's blood pressure had been somewhat low prior to his ER vis it here. His primary care physician relating to the patient's ongoing weakness, recommended admissio [facility]. Here in [place], the patient has been afebrile. His blood pressure was 112/64. He does have a leuko cytosis. His chemistries are noted for a creatinine of 3.5, which is above his baseline of the upper 2s. His urinalysis is notable for 10 to 25 white blood cells per high-power field, along with bacte ophelia. The patient was last seen by Dr. Ferreira in March. At that time, his blood pressure was 124/70. His creatinine was 2.72. Of additional importance, the patient has had increased urinary frequency r ecently, urinating at least 4 times at night. As related to the above findings, we are asked by Dr. Arreguin in the emergency room staff to assist the patient's renal diagnosis and management. PAST MEDICAL HISTORY: 1. Chronic kidney disease with history of nonsteroidal use and AL amyloidosis. At the time of his d iagnosis of AL amyloidosis, the patient did require hemodialysis from February 2012, to August 2012. H is baseline creatinine is now 2.8. 2. 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 He is followed by Dr. Bandar Soliz and Dr. Kristine joyner in the [facility]. He has been thought to be in a remission for the last 3 years on current t herapy. 3. History of positive [place]. 4. Hypertension. 5. Chronic diarrhea. 6. Bilateral cysts. 7. Hyperlipidemia. 8. History of liver abscess. 9. Acquired hypothyroidism. 10. Degenerative joint disease. 11. Coronary artery disease. 12. 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 The patient is followed by Dr. Nielsen and Dr. Hayes . 13. Atrial fibrillation. 14. History of Bi V pacemaker placement. 15. Obstructive sleep apnea. 16. Benign prostatic hypertrophy. 17. Third-degree AV block. 18. Diverticulitis. 19. History of genital herpes. SURGICAL HISTORY: 1. Pacemaker placement by Dr. Hayes. 2. Liver abscess drainage. 3. Cholecystectomy. 4. Thyroidectomy. 5. Right shoulder surgery. 6. Ventral herniorrhaphy. 7. Hemodialysis catheter access placement and removal. HOME MEDICATIONS: Acyclovir 200 mg b.i.d., atorvastatin 10 mg daily, allopurinol 100 mg daily, aspir in 81 mg daily, amiodarone 200 mg daily, budesonide daily, carvedilol 23.75 mg b.i.d., calcium, magne sium, and zinc supplement, cholestyramine 4 g daily, glucosamine daily, Levoxyl 150 mcg daily, multiv itamin daily, mirtazapine 3.75 mg daily, potassium chloride 20 mEq b.i.d., spironolactone 12.5 mg tila ly, Tylenol daily, warfarin daily, Ambien p.r.n., Zyrtec as needed, vitamin D 5000 units daily, tamsu losin 0.4 mg daily, furosemide 120 mg b.i.d. FAMILY HISTORY: Noncontributory. SOCIAL HISTORY: The patient was born in [place], [place]. He presently lives in [place]. He is mar ried. 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 He does not smoke cigarettes or drink alcohol. REVIEW OF SYSTEMS: GENERAL: Notable for weakness and chills. He denies an overt loss of appetite. He has had headaches. Denies visual disturbances. He denies rhinitis. He has had some cough and s hortness of breath. He has had some intermittent chest pain, which he states is chronic and attribut ed to his amyloidosis. He has had some mild abdominal discomfort, but presently is not having any. He denies constipation or diarrhea. He has had urinary frequency. He denies lower extremity edema. He has some numbness in his left index finger. He, otherwise, denies neuropathy. He does not have history of diabetes. He has a history of thyroid disease. PHYSICAL EXAM: GENERAL: At time of exam, the patient is alert and oriented. VITAL SIGNS: Temperat ure 36.5, pulse 71, blood pressure 114/69. HEENT: Eyes: Sclerae clear. Oropharynx clear. NECK: No lymphadenopathy or thyromegaly. LUNGS: Clear to auscultation throughout all lung espinal. CARDIO VASCULAR: Regular rate and rhythm with a holosystolic murmur noted. ABDOMEN: Mildly distended, non tender. No organomegaly. /RECTAL: Deferred. EXTREMITIES: Trace edema bilaterally. INTEGUMENT: Generally clear. NEURO: No focal findings. He does have generalized weakness. LABORATORY STUDIES: Urinalysis: Specific gravity 1.011, leukocyte esterase 1+, 1 to 3 red cells per high-powered field, 15 to 25 white blood cells per high-power field, 2+ bacteria. Sodium 139, potas sium 3.7, bicarb 22, creatinine 3.5. Lactate level 0.8. INR 2.8. White count 14.5, hematocrit 37, platelet count 364. IMPRESSION AND PLAN: 1. Febrile illness. The patient has had a febrile illness for approximately 2 weeks. The patient h ad a "borderline" influenza test, and was treated with Tamiflu for this. He is now 2 weeks out from this. He is afebrile, but he has a persistently elevated white blood cell count. The patient does n ot give a history of increased urinary frequency, and has evidence of urinary tract infection on his urinalysis. He is being treated with antimicrobials for this. It is possible he initially did have an upper respiratory viral illness, but now his main issue is his lower urinary tract infection. He will be followed with his antibiotic treatment. We will check a renal ultrasound and postvoid residu al. 2. Acute kidney injury on chronic kidney disease. Given the patient's overall findings and his symp toms of orthostasis, it seems likely he has intravascular volume depletion. His diuretics will be he ld, and he will be given some gentle intravenous fluids. We will follow his labs in a serial fashion . 3. Cardiac. The patient follows with Dr. Nielsen and Dr. Hayes. The patient was due for 1 month [facility] follow[facility] following conversion to a dual-chamber pacemaker by Dr. Hayes approximately 1 month ago. I have alerted both Dr. Nielsen and Dr. Hayes to his admission. I do not believe he requires any acute a ttention for cardiac issues at present. 4. Anemia. The patient's anemia has slightly worsened. We will follow this. 5. Anticoagulation. His INR will need to be followed in light of his ongoing antibiotics. 6. Amyloid light-chain amyloidosis and gammopathy. The patient's paraprotein level has reportedly b een stable. Thank you for allowing us to participate in this gentleman's care. We will continue following closel y with you. /[id number]/MODL
[2018-06-11] MEDS ORDERED: WARFARIN SODIUM 2.5 MG TAB PO SCH (17:30)
--- NOTE | 2018-06-11 17:55 | HOSPPROG ---
Hospitalist Progress Note Assessment/Plan: I discussed case with Jesica Bone FLAT [employer]OTHIER and agree with plan outlined in her note with the following exceptions: Briefly, 72yo M with history of atrial fibrillation on warfarin and amiodarone, kappa chain AL amyloidosis complicated by CKD (b/l Cr 2.8) and CHF (LVEF 33%, s/ p recent upgrade to BiV ICD) presents with 2 weeks of intermittent fever to 101 , dry cough, increasing shortness of breath, and chills. He has felt very fatigued. Denies chest pain, leg or abdominal edema. He reportedly had a " weakly positive" influenza test at his PCP yesterday and was started on tamiflu. In the ED here, a CXR shows no obvious infiltrate or signs of decompensated heart failure. Blood cultures were drawn and he was started on IV ceftriaxone and azithromycin due to clinical concern for pneumonia. He was also noted to have an elevated creatinine. Renal was consulted. On exam, he has no wheezes or crackles or rhonchi. He has not JVD or leg edema. His heart is regular. Additional labs show a WBC of 14k with increased neutrophils but no bands. Stable anemia with hemoglobin of 11. Creatinine is 3.2. ALT is 133, alk phos is 135. INR is 2.8. Lactate is within normal limits. Assessment/Plan: 1. Fever, leukocytosis: I think this is likely related to a pulmonary process, such as an atypical pneumonia, given his symptoms. Additionally, amiodarone lung toxicity should be considered as this presents with dry cough, dyspnea and , in a fair amount of cases, with fevers. He denies any urinary symptoms to me; his UA is slightly abnormal but he reports this not being a clean catch. - Non-contrasted chest CT to eval lung parenchyma - Follow urine and blood cultures - Continue ceftriaxone and azithromycin - If not improving with antibiotics, reasonable to consult cardiology to discuss possibility of amiodarone causing symptoms 2. GEOVANNY on CKD: Suspect mildly dehydrated. - Stopped his diuretics, giving gentle fluids - Renal consulted and have ordered a renal ultrasound 3. Non-ischemic chronic CHF: LVEF 33%. He appears dry. BNP lowest its been in our system. Recently had BiV ICD placed. 4. Paroxysmal atrial fibrillation: Continue warfarin, INR therapeutic. 5. [place] chain AL amyloidosis: Followed by Dr Soliz. Has been in remission for several years. Dispo: Admit under observation Objective: Vital Signs Temp Pulse Resp BP Pulse Ox 37.1 C 76 18 132/78 H 96 06/11/18 17:30 06/11/18 17:30 06/11/18 17:30 06/11/18 17:30 06/11/18 17:30 PT 28.1 SEC (12.0-15.0) H 06/11/18 13:33 INR 2.80 (0.83-1.16) H 06/11/18 13:33 ICD10 Worksheet Patient Problems: Problems Problem Status Onset Pneumonia Acute Cellulitis Acute Congestive heart failure Acute Necrotic eschar Acute Traumatic hematoma of left lower leg with infection Acute
[2018-06-11] MEDS ORDERED: ZOLPIDEM TARTRATE 5 MG TAB PO PRN (18:16)
[2018-06-11] MEDS: BUDESONIDE 3 MG EC CAP PO SCH (18:40)
[2018-06-11] MEDS: CARVEDILOL 6.25 MG TAB PO SCH ×2 (18:40→20:44)
[2018-06-11] MEDS: FAMOTIDINE 20 MG TAB PO SCH (20:44)
[2018-06-11] MEDS: ACYCLOVIR 200 MG CAP PO SCH (20:44)
[2018-06-11] MEDS: TAMSULOSIN HCL 0.4 MG CAP PO SCH (20:44)
[2018-06-11] MEDS ORDERED: ASPIRIN 81 MG CHEWABLE TAB PO SCH (21:00)
[2018-06-11] MEDS ORDERED: MIRTAZAPINE 3.75 MG PO SCH (21:00)
[2018-06-12 05:09] LABS: PLATELET COUNT 309 10^3/uL (150-400)
[2018-06-12 05:21] LABS: INR 3.03 (0.83-1.16); PROTIME(PATIENT) 29.8 SEC (12.0-15.0)
[2018-06-12] MEDS: LEVOTHYROXINE 150 MCG TAB PO SCH (06:02)
[2018-06-12] MEDS ORDERED: WARFARIN SODIUM 2.5 MG TAB PO SCH (08:00)
[2018-06-12] MEDS: ACYCLOVIR 200 MG CAP PO SCH ×2 (08:44→21:19)
[2018-06-12] MEDS: CARVEDILOL 6.25 MG TAB PO SCH ×2 (08:44→17:33)
[2018-06-12] MEDS: ATORVASTATIN CALCIUM 10 MG TAB PO SCH (08:44)
[2018-06-12] MEDS: AMIODARONE HCL 200 MG TAB PO SCH (08:44)
[2018-06-12] MEDS: CHOLESTYRAMINE/SUCROSE 4 GM PKT PO SCH (08:45)
[2018-06-12] MEDS ORDERED: AZITHROMYCIN IV 500 MG in NS 250 ML IV SCH (09:00)
--- NOTE | 2018-06-12 11:19 | SOAPPROG ---
JULISSA Progress Note Assessment/Plan: Assessment: CHF MD COSTA NOTE: 72 y/o man with following cardiac and medical issues: --[place] cardiac amyloidosis --AICD with PAF on PO Amiodarone --JEB on CPAP --CHF with LVEF 33% --CRI with baseline creatinine 2.8 Last cardiac cath 2008 showed normal coronaries. Echo 12/11 showed LVEF 33%, mild -moderately reduced RVEF, mild AI/MR/TR and estimated normal PA pressures. [facility] sees me in [facility] and [facility] Amyloid clinic. He was feeling well until two weeks ago when developed low grade fevers, tiredness, cough and dizziness. Admitted with dehydration and ARF on CRI. Weight in clinic when last saw me in Feb 2018 wqas 79.8kg and today 76.7kg. Denies PND, CP, palpitations or edema. I agree he looks intravascularly dry. No signs of recurrent afib, pulmonary edema or angina. REC: 1)continue to hold home Lasix, Aldactone and KCL 2)will temporarily decrease Coreg to 12.5mg PO BID as BP soft and low. 3)call if needed. Will set up CHF clinic follow up for 7-10 days after discharge. Thanks. 06/12/18 11:12 Subjective: he is tired and weak. Denies CP, rest shortness of breath or PND. Objective: Vital Signs Temp Pulse Resp BP Pulse Ox 36.4 C 76 20 104/63 94 06/12/18 09:50 06/12/18 09:50 06/12/18 09:50 06/12/18 09:50 06/12/18 09:50 Laboratory Results 06/12/18 04:50 06/12/18 04:50 06/11/18 06/12/18 06/13/18 05:59 05:59 05:59 Intake Total 250 Output Total 1075 Balance -825 PT 29.8 SEC (12.0-15.0) H 06/12/18 04:50 INR 3.03 (0.83-1.16) H 06/12/18 04:50 Physical Exam - Physical Exam General Appearance: alert EENT: normal ENT inspection Neck: non-tender Respiratory: lungs clear Cardiac/Chest: regular rate, rhythm, systolic murmur, No gallop, No JVD (JVP to 6cm (low).), No extra beats Peripheral Pulses: 2+: carotid (R), carotid (L), femoral (R), femoral (L), dorsalis-pedis (R), dorsalis-pedis (L) Abdomen: non-tender, No distended, No guarding, No ascites Skin: warm/dry Extremities: No pedal edema Neuro/Psych: alert ICD10 Worksheet Patient Problems: Problems Problem Status Onset Pneumonia Acute Cellulitis Acute Congestive heart failure Acute Necrotic eschar Acute Traumatic hematoma of left lower leg with infection Acute
--- NOTE | 2018-06-12 13:05 | SOAPPROG ---
SOAP Progress Note Assessment/Plan: Assessment: #GEOVANNY on CKD- non-oliguric -Cr improving with IVF (3.2-> 2.8), baseline Cr high 2s -no hydro or stone on u/s, no significant PVR -diuretics on hold -off IVF and taking po well---watch BP as would have low threshold for gentle IVF bolus. Encouraged pt to take po -i will reduce dose of coreg as bp on soft side still #E coli bacteremia -no stone or hydro noted on u/s -urine Cx pending -ID seeing- appreciate their input -on Ceftriaxone #history of AL Amyloid #CHF with LVEF 25%, recent dual chamber pacemaker [facility] pager [phone] office [phone] 06/12/18 14:36 Subjective: Feeling better. Denies sob, n/v, dysuria. No difficulty emptying bladder. Off IVF and reports good po intake. Blood Cx positive E coli, ID to see him. Objective: Vital Signs Temp Pulse Resp BP Pulse Ox 36.7 C 76 24 H 103/76 97 06/12/18 12:33 06/12/18 12:33 06/12/18 12:33 06/12/18 12:33 06/12/18 12:33 Laboratory Results 06/12/18 04:50 06/12/18 04:50 06/11/18 06/12/18 06/13/18 05:59 05:59 05:59 Intake Total 250 Output Total 1075 Balance -825 PT 29.8 SEC (12.0-15.0) H 06/12/18 04:50 INR 3.03 (0.83-1.16) H 06/12/18 04:50 Physical Exam - Physical Exam General Appearance: alert, no apparent distress EENT: other Neck: supple Respiratory: lungs clear Cardiac/Chest: regular rate, rhythm, other (no rub) Abdomen: non-tender, soft Skin: warm/dry Extremities: other (no edema) Neuro/Psych: alert, oriented x 3 ICD10 Worksheet Patient Problems: Problems Problem Status Onset Pneumonia Acute Cellulitis Acute Congestive heart failure Acute Necrotic eschar Acute Traumatic hematoma of left lower leg with infection Acute
--- NOTE | 2018-06-12 14:41 | HOSPPROG ---
Hospitalist Progress Note Assessment/Plan: Assessment/Plan: 1. E Coli Bacteremia - Presented with fever, leukocytosis - Source currently unknown, possible urinary source given +UA on admission, denies significant recent urinary symptoms, no hydronephrosis or nephrolithiasis noted on Renal U/S - Blood cultures on admission positive for E Coli - Started on Ceftriaxone and Azithromycin on admission, will d/c azithromycin for now - ID consulted this AM for further evaluation and management - Does have hx of lower extremity cellulitis and liver abscess, does not appear these are currently contributing - Repeat blood cultures tomorrow AM - CXR on admission showing bronchitis, CT Chest performed yesterday negative for acute abnormality - F/u urine culture 2. GEOVANNY on CKD: Suspect mildly dehydrated. - Diuretics being held, giving gentle fluids - Renal consulted yesterday, ordered Renal U/S- no obstruction noted, no significant post-void residual - Cr improved overnight with IVF from 3.2 to 2.8 (baseline in high 2's) - Continue to monitor I/O, Cr, avoid nephrotoxic agents 3. Non-ischemic chronic CHF: - LVEF 33%. He appears dry. BNP lowest its been in our system. Recently had BiV ICD placed. - Evaluated by Cardiology, Dr. Nielsen this morning, recommends continue to hold home Lasix, Aldactone, KCl, temporarily decrease Coreg to 12.5 mg BID due to low BPs 4. Paroxysmal atrial fibrillation: Continue warfarin, INR therapeutic. Continue home Amiodarone, Coreg at decreased dose as above 5. [place] chain AL amyloidosis: Followed by Dr Soliz. Has been in remission for several years. FEN: Cardiac DVT PPx: Coumadin Code: FULL Dispo: Pending clinical course Subjective: Patient reports feeling mildly improved this AM Objective: Vital Signs Temp Pulse Resp BP Pulse Ox 36.7 C 76 24 H 103/76 97 06/12/18 12:33 06/12/18 12:33 06/12/18 12:33 06/12/18 12:33 06/12/18 12:33 Laboratory Results 06/12/18 04:50 06/12/18 04:50 06/11/18 06/12/18 06/13/18 05:59 05:59 05:59 Intake Total 250 Output Total 1075 Balance -825 PT 29.8 SEC (12.0-15.0) H 06/12/18 04:50 INR 3.03 (0.83-1.16) H 06/12/18 04:50 - Physical Exam Constitutional: no apparent distress Eyes: PERRL Ears, Nose, Mouth, Throat: moist mucous membranes Cardiovascular: irregularly irregular Respiratory: no respiratory distress Skin: warm Musculoskeletal: full muscle strength Neurologic: AAOx3 Psychiatric: interacting appropriately ICD10 Worksheet Patient Problems: Problems Problem Status Onset Pneumonia Acute Cellulitis Acute Congestive heart failure Acute Necrotic eschar Acute Traumatic hematoma of left lower leg with infection Acute
--- NOTE | 2018-06-12 16:36 | ASMTCMCOM ---
CM Note CM Note Notes: Pt has been admitted with a UTI, E coli bacteremia. He lives with his in [place]. No PT/OT evals have been ordered. He has had [facility] in the past. CM will follow for any d/c needs. D/C plan: TBD Date Signed: 06/12/2018 04:35 PM Electronically Signed By:ALTA Galvan
--- NOTE | 2018-06-12 16:50 | PDCONSULT ---
Mortgage Loan Assistant Note: Infectious Diseases Consult Note Impression: 72-year-old man with E coli bloodstream infection with probable source from the urinary tract. Due to his history of what sounded microscopic colitis requiring topical steroid therapy, history of liver abscesses, in general abdominal distention suspect he could have a recurrence of liver abscesses. Overall clinically he remains very stable in spite of being bacteremic, no indication for escalation of spectrum of antimicrobials. 1. E coli bloodstream infection likely source urinary tract, possible source GI tract 2. Acute kidney injury present admission, improved 3. CKD 4. History of amyloidosis, active surveillance without chemotherapy 5. History of BPH 6. 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 Continue ceftriaxone [address] abdomen pelvis without IV contrast due to CKD 3. Reviewed in detail potential side effects of beta-lactam antibiotics to include: allergy, rash, nausea, antibiotic-associated diarrhea, Clostridioides difficile colitis. 4. Repeat blood cultures not warranted unless clinical improvement ceases and/ or new fevers develop Umang Laboy MD Infectious Diseases Chief Complaint: Cough and fatigue Requesting Provider: Dr. Edgar Reason for Referral: Consultation was requested by Dr. Edgar regarding antimicrobial management. HPI: 72-year-old man who presents to hospital after approximately 3 weeks of feeling unwell with fevers, nonproductive cough, and general fatigue. Chronology of Present Illness: Location of symptoms: General fatigued; nonproductive cough x3 weeks Onset of symptoms: Approximately 3 weeks prior to admission Initial signs/symptoms: General fatigue manifesting as decreased ability to ambulate via walking usual 2-3 miles daily that he had done 10 days prior to becoming ill associated with a nonproductive cough more prominent when lying on his side Associated signs/symptoms at onset: He has a general feeling of warmth in the afternoon and evening with chills during the day present for the full duration of his illness Changes since onset: Cough has worsened in his frequency and intensity but remains nonproductive; the general sense of fatigue has remained unchanged Exacerbating factors: None identified Relieving factors: None identified prompting him to present to the emergency department Antibiotics since symptom onset: Tamiflu 1 day prior to admission prescribed by his outpatient providers; azithromycin and ceftriaxone prescribed upon admission Change in symptoms with antibiotics: Generally feels significantly improved since admission with some improvement energy, and decreasing cough intensity Relevant social history: His was sick with a cold around the time of symptom onset approximately 3 weeks prior to admission, her symptoms have resolved Relevant PMHx/PSHx: Amyloidosis without active chemotherapy and stable disease ; he has chronic loose stools typically 3-5 times daily this is been present for years thought to be manifestation of his colitis (possible microscopic colitis by report); history of liver abscesses without a clear GI source even with exploratory laparotomy in 2002 resulting in a cholecystectomy at the time of ex lap Reviewed patient medical records in [facility], and [facility] ([facility] Past Medical History: Amyloidosis (currently monitored, last chemotherapy CyBorD in 2011 to 2012), CKD, possible microscopic colitis (maintained budesonide), liver abscesses with bloodstream infection in 2002; BPH Past Surgical History: Cholecystectomy in 2002; exploratory laparotomy 2002; appendectomy in childhood; pacemaker placement 2015, exchanged 2019 Social History: Does not use tobacco products; Does not consume marijuana products; Drinks alcohol socially; Does not use any other drugs currently or in the past Family History: No family members with recurrent infections Allergies: NKDA Medications: Reviewed in medical record and confirmed with patient. ROS: 10 organ systems reviewed; pertinent positives and negatives listed in the HPI, all other organ systems negative. Physical Exam: VS: Reviewed Gen: No acute distress; Breathing comfortably with supplemental oxygen; Able to speak in complete sentences Eyes: No conjunctival injection; No scleral icterus HENT: No gross deformities Neck: No limitation in range of motion Pulm: Audible inspiratory sounds to the bases bilaterally; No wheeze, rhonchi, or rales CV: Normal S1 and S2; Regular rate and rhythm; No murmurs, rubs, or gallops; No lower extremity edema Abd: Distended; Hypo-active bowel sounds; firm; Non-tender Skin: A full skin exam including exposed bilateral upper extremities, bilateral lower extremities to the knees, face, neck, abdomen, chest, and back performed; left lower extremity lateral aspect superior to the left lateral malleolus with a well-healed wound; Otherwise, skin intact, warm, with no rash MSK: Joints without erythema or edema; No gross limitation in range of motion Ext: No clubbing or cyanosis Neuro: Awake and alert Psych: Normal mood and blunted affect Labs/Imaging: All microbiology testing (culture and non-culture) reviewed in the medical record. Personally reviewed and interpreted the images of the following radiographs: Chest CT that did not show the pulmonary parenchymal infiltrates. Medications Generic Name Dose Route Start Last Admin Trade Name Freq PRN Reason Stop Dose Admin Ceftriaxone Sodium/Dextrose 50 mls @ 100 mls/hr 06/12/18 09:00 06/12/18 08:41 Rocephin 1 Gm (Premix) IV 07/12/18 08:59 50 mls DAILY [place] Protocol Discontinued Medications Generic Name Dose Route Start Last Admin Trade Name Freq PRN Reason Stop Dose Admin Azithromycin 500 mg/ Sodium 255 mls @ 255 mls/hr 06/11/18 13:49 06/11/18 14: 52 Chloride IV 06/11/18 14:48 255 mls EDNOW ONE Protocol Ceftriaxone Sodium/Dextrose 50 mls @ 100 mls/hr 06/11/18 13:49 06/11/18 14:26 Rocephin 1 Gm (Premix) IV 06/11/18 14:18 50 mls EDNOW ONE Protocol Microbiology 06/11/18 14:18 Blood Blood Panel (PCR) - Final Escherichia Coli 06/11/18 13:44 Nasal, Sinus - Swab Respiratory Panel (PCR) - Final No Organism Detected By Pcr 06/11/18 14:45 Urine,Clean Catch Urine Culture - Preliminary Gram Neg Erji Lactose Social Services Aide Two [place] Types 06/11/18 14:18 Blood Blood Culture - Preliminary 06/11/18 14:18 Blood Gram Negative Reji Laboratory Tests 06/11/18 06/11/18 06/11/18 13:30 13:30 14:55 WBC 14.52 H Hgb 11.3 L Plt Count 364 Creatinine 3.2 H Total Protein Albumin Urine WBC 15-25 H 06/12/18 06/12/18 04:50 04:50 WBC 13.22 H Hgb 9.3 L Plt Count 309 Creatinine 2.8 H Total Protein 5.0 L Albumin 2.4 L Urine WBC Ongoing monitoring for antimicrobial toxicity with: CBC, BMP.
[2018-06-12] MEDS: BUDESONIDE 3 MG EC CAP PO SCH (17:33)
[2018-06-12] MEDS ORDERED: MIRTAZAPINE 15 MG TAB PO SCH (21:00)
[2018-06-12] MEDS: FAMOTIDINE 20 MG TAB PO SCH (21:19)
[2018-06-12] MEDS: TAMSULOSIN HCL 0.4 MG CAP PO SCH (21:19)
[2018-06-13 05:24] LABS: PLATELET COUNT 337 10^3/uL (150-400)
[2018-06-13 05:37] LABS: INR 2.99 (0.83-1.16); PROTIME(PATIENT) 29.5 SEC (12.0-15.0)
[2018-06-13] MEDS: LEVOTHYROXINE 150 MCG TAB PO SCH (07:09)
[2018-06-13] MEDS ORDERED: WARFARIN SODIUM 2.5 MG TAB PO SCH ×2 (08:00→16:00)
--- NOTE | 2018-06-13 09:30 | SOAPPROG ---
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 GEOVANNY on CKD- non-oliguric -Cr improved to 2.6 with IVF, near baseline -no hydro or stone on u/s, no significant PVR -diuretics on hold for now -urine and blood cx consistent with E.coli, sensitivities noted -avoid nephrotoxins Hypotension -BPs still soft, holding Coreg this am -continuing amio -keep MAP>65, however would minimize further fluids -will contact pharmacy regarding abx and interaction with amio Will arrange f/u with [facility] in 4-6 weeks. Labs per PCP as outpatient in 5-7 days. Please contact if further ?'s, #[phone]. 06/13/18 10:03 Subjective: Patient feeling better this am. Still not eating much. Objective: Vital Signs Temp Pulse Resp BP Pulse Ox 36.6 C 74 18 111/71 94 06/13/18 03:17 06/13/18 03:17 06/13/18 03:17 06/13/18 03:17 06/13/18 03:17 Laboratory Results 06/13/18 04:52 06/13/18 04:52 06/12/18 06/13/18 06/14/18 05:59 05:59 05:59 Intake Total 250 1200 Output Total 1075 675 Balance -825 525 PT 29.5 SEC (12.0-15.0) H 06/13/18 04:52 INR 2.99 (0.83-1.16) H 06/13/18 04:52 Physical Exam - Physical Exam General Appearance: WD/WN, alert, no apparent distress EENT: PERRL/EOMI Neck: non-tender, full range of motion, supple Respiratory: chest non-tender, decreased breath sounds Cardiac/Chest: edema, irregularly irregular Abdomen: normal bowel sounds, non-tender, soft Extremities: normal range of motion, non-tender Neuro/Psych: oriented x 3 ICD10 Worksheet Patient Problems: Problems Problem Status Onset Pneumonia Acute Cellulitis Acute Congestive heart failure Acute Necrotic eschar Acute Traumatic hematoma of left lower leg with infection Acute
[2018-06-13] MEDS: ACYCLOVIR 200 MG CAP PO SCH (09:48)
[2018-06-13] MEDS: ATORVASTATIN CALCIUM 10 MG TAB PO SCH (09:48)
[2018-06-13] MEDS: CARVEDILOL 6.25 MG TAB PO SCH (09:49)
[2018-06-13] MEDS: AMIODARONE HCL 200 MG TAB PO SCH (09:50)
[2018-06-13] MEDS: CHOLESTYRAMINE/SUCROSE 4 GM PKT PO SCH (09:51)
--- NOTE | 2018-06-13 10:06 | PDMN ---
Medical Necessity Medical necessity: Change to IP, as of 06/12/18, per MD & MCG MG-SIC Systemic or Infectious Condition; los >2 mn for ongoing management of E. coli bacteremia ( source unknown) w/acute on chronic kidney failure & bronchitis; requiring further workup/monitoring, ID consult & IV abx; hx CHF, AFIB on AC, amyloidosis , CKD, liver abscess
[2018-06-13 11:10] VITALS: BP 111/69
--- NOTE | 2018-06-13 11:25 | ASMTCMCOM ---
CM Note CM Note Notes: Met with patient and re: discharge planning needs. Patient has used [facility] in the past, declining hc services at this time. Patient has also utilized [facility] in the d/t [employer] qualifications. CM available should needs arise. to transport home. Plan: Independent Date Signed: 06/13/2018 11:24 AM Electronically Signed By:Nancy Aguirre RN
--- NOTE | 2018-06-13 11:29 | ASDISCHSUM ---
Discharge Information Plan Status:Home with No Needs Medically Cleared to Leave: Discharge Date: CM D/C Disposition:Home, Routine, Self-Care ADT D/C Disposition: Projected Discharge Date: Transportation at D/C:Family Discharge Delay Reason: Follow-Up Date: Discharge Slot: Final Diagnosis: Placement Information Patient Contact Information Contact Name:DIANA Relationship: Address:[id number] [place] [address] Work Phone: City:[place] [facility] Phone: State/Zip Code:[place] [address] Email: Financial Information Financial Class:Medicare Primary Plan Desc:MEDICARE OUTPATIENT Primary Plan Number:[id number] Secondary Plan Desc:DARIN/MDR SUPPLEMENT Secondary Plan Number:[id number] Assessment Information LACE LACE Length of stay for Answers: 1 day current admission Acuity / Level of Answers: Yes Care: Did the patient have an inpatient admission? Comorbidities - select Answers: Congestive heart failure all that apply Moderate or severe liver or renal disease Other Notes: AFib; Hypothyroid # of Emergency department Answers: 3-4 visits in the last 6 months Score: 14 Date Signed: 06/13/2018 11:27 AM Electronically Signed By:Nancy Aguirre RN [facility] CM Progress Note CM Note CM Note Notes: Pt has been admitted with a UTI, E coli bacteremia. He lives with his in [place]. No PT/OT evals have been ordered. He has had [facility] in the past. CM will follow for any d/c needs. D/C plan: TBD Date Signed: 06/12/2018 04:35 PM Electronically Signed By:ALTA Galvan [facility] CM Progress Note CM Note CM Note Notes: Met with patient and re: discharge planning needs. Patient has used [facility] in the past, declining hc services at this time. Patient has also utilized [facility] in the d/t [place] qualifications. CM available should needs arise. to transport home. Plan: Independent Date Signed: 06/13/2018 11:24 AM Electronically Signed By:Nancy Aguirre RN Intervention Information Intervention Type:*ESTRELLA-Signed Date of Service:06/12/2018 12:31 PM Patient Type:Observation Staff Member:Susan Hernandez Hours: Discipline: Severity: Comment:
--- NOTE | 2018-06-13 11:39 | PDIAF ---
- Diagnosis Diagnosis: E coli bloodstream infection secondary to pyelonephritis Code Status: Full Code - Medication Management Sales Administration Manager Antibiotics: cefdinir 300mg PO BID Sales Administration Manager Antibiotic Stop Date: 06/24/18 Discharge Medications: electronically signed and located in the Home Medication List. PICC Care - Routine: N/A - Orders Isolation Type: None - Follow Up Care Current Providers and Referrals: RICHAR TAYLOR [Primary Care Provider] - As per Instructions Umang Laboy MD [Medical Doctor] - 06/24/18
--- NOTE | 2018-06-13 11:56 | PCMIDPN ---
Assessment/Plan: Assessment: 72-year-old man with E coli bloodstream infection with the likely source being pyelonephritis. Abdominal CT did not reveal a recurrence of his liver abscesses that were present 2002 and does not show other intra-abdominal source for the E coli bloodstream infection other than the urinary tract. Overall he is recovered quite rapidly and is nearly back to his baseline health. Discussed in detail with the patient that the ideal scenario would be oral therapy with a quinolone but his use of amiodarone and QTC prolongation precludes utilization this medication class as it will likely further prolong his QTC which then risks a rhythm. Will use cefdinir at twice daily dosing even know his creatinine clearance is calculated to be just under 30 which otherwise would warrant once daily dosing. We will do twice daily dosing due to the less reliable absorption with cefdinir compared to quinolones in the fact that he has ongoing loose bowel movements which are his normal. 1. E coli bloodstream infection, likely source pyelonephritis 2. Acute kidney injury present on admission, resolved 3. CKD 4. History of amyloidosis, active surveillance without chemotherapy 5. History of BPH 6. 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 Discharged on cefdinir 300 mg p.o. Twice daily times 11 more days 2. ID follow-up to be arranged for June 24 3. Will follow up with patient on Sunday via phone to ensure continued improvement 4. Repeat labs when he returns for his clinic visit with ID on 06/24 5. Reviewed in detail potential side effects of beta-lactam antibiotics to include: allergy, rash, nausea, antibiotic-associated diarrhea, Clostridioides difficile colitis. Umang Laboy MD Infectious Diseases 06/13/18 11:57 Subjective: No fever or chills in the past 24-hours. Tolerating oral diet with solids and liquids. No change to his usual 3-5 loose bowel movements daily. No rash. Appetite improving and is essentially normal. Ambulating to the restroom without significant shortness of breath. Improved since admission but not back to baseline health; general fatigue is last lingering manifestation but overall this is much better compared to yesterday in certainly prior to coming to the hospital. Objective: Vital Signs Temp Pulse Resp BP Pulse Ox 36.3 C 73 20 111/69 94 06/13/18 11:07 06/13/18 11:07 06/13/18 11:07 06/13/18 11:07 06/13/18 11:07 Laboratory Results 06/13/18 04:52 06/13/18 04:52 06/12/18 06/13/18 06/14/18 05:59 05:59 05:59 Intake Total 1200 Output Total 475 Balance 725 Medications Discontinued Medications Generic Name Dose Route Start Last Admin Trade Name Dirk PRN Reason Stop Dose Admin Ceftriaxone Sodium/Dextrose 50 mls @ 100 mls/hr 06/12/18 09:00 06/13/18 09:47 Rocephin 1 Gm (Premix) IV 07/12/18 08:59 50 mls DAILY [place] Protocol Microbiology 06/11/18 14:18 Blood Blood Panel (PCR) - Final Escherichia Coli 06/11/18 14:45 Urine,Clean Catch Urine Culture - Preliminary Escherichia Coli Two [place] Types 06/11/18 14:18 Blood Blood Culture - Preliminary 06/11/18 14:18 Blood Gram Neg Reji Lactose Hoisting Laborer 06/11/18 14:18 Blood Blood Culture - Preliminary Laboratory Tests 06/11/18 06/12/18 06/13/18 13:30 04:50 04:52 WBC 14.52 H 13.22 H 10.65 H Hgb 11.3 L 9.3 L 9.1 L Plt Count 309 337 Personally reviewed the images and interpreted the following radiographs: Abdominal CT from 06/12/2018 the does not show lesions in the liver that would suggest abscesses, diverticulosis without diverticulitis, no other intra- abdominal abscess seen given the limitations of a non IV contrast study - Physical Exam General Appearance: no apparent distress, non-toxic EENT: No scleral icterus Respiratory: No respiratory distress, No accessory muscle use Neck: full range of motion, supple Extremities: No erythema Abdomen: soft, distended, No guarding, No rebound Skin: No erythema Neuro/Psych: alert, normal mood/affect, oriented x 3, No confused - Time Spent With Patient Time Spent with Patient: greater than 35 minutes (Discussed with patient and his was at bedside expected outcome of pyelonephritis with bloodstream infection, expected outcome with oral therapy, need to follow-up to ensure resolution, inability to utilize quinolones due to QTC prolongation related to immune) Time Spent with Patient: Greater than 35 minutes spent on this patients care, greater than 50% of time spent counseling, educating, and coordinating care regarding the above mentioned plan. ICD10 Worksheet Patient Problems: Problems Problem Status Onset Pneumonia Acute Cellulitis Acute Congestive heart failure Acute Necrotic eschar Acute Traumatic hematoma of left lower leg with infection Acute
--- NOTE | 2018-06-13 15:39 | PDDCSUM ---
Discharge Summary Discharge Summary: Date of Admission: 06/11/2018 Date of Discharge: 06/13/2018 Consults: ID, Cardiology, Nephrology Procedures: CT A/P, CT Chest Followup: PCP, ID, Cardiology Hospital Course Problem List: 1. E Coli Bacteremia - Presented with fever, leukocytosis - Source likely urinary, no hydronephrosis or nephrolithiasis noted on Renal U/ S - Blood cultures on admission positive for E Coli, urine also positive for E Coli - Started on Ceftriaxone and Azithromycin on admission, transitioned to Cefdinir 300 mg BID to complete total 14 day course (11 more days as outpatient) - ID consulted - Does have hx of liver abscess, CT A/P performed showed no acute abnormalities - CXR on admission showing bronchitis, CT Chest performed negative for acute abnormality 2. GEOVANNY on CKD: Suspect mildly dehydrated. - Diuretics were held, s/p gentle fluids - Renal consulted, ordered Renal U/S- no obstruction noted, no significant post- void residual - Cr improved overnight with IVF from 3.2 to 2.6 (baseline in high 2's) 3. Non-ischemic chronic CHF: - LVEF 33%. He appears dry. BNP lowest its been in our system. Recently had BiV ICD placed. - Evaluated by Cardiology, Dr. Nielsen, was holding home Lasix, Aldactone, KCl, temporarily decreased Coreg to 12.5 mg BID due to low BPs - Discussed with Dr. Nielsen who recommends to discharge patient on Lasix 40 mg QD (was on TID), hold home Aldactone/KCL until f/u in clinic with him 4. Paroxysmal atrial fibrillation: Continue warfarin, INR therapeutic. Continue home Amiodarone, Coreg 5. [place] amyloidosis: Followed by Dr Soliz. Has been in remission for several years. Time spent on discharge was >35 minutes with >50% of time spent on patient education and counseling.
[2018-06-13] MEDS ORDERED: CEFDINIR 300 MG CAP PO SCH (21:00)
[2018-06-14] MEDS ORDERED: FUROSEMIDE 40 MG TAB PO SCH (09:00)
[2018-06-14] MEDS ORDERED: WARFARIN SODIUM 2.5 MG TAB PO SCH (16:00)
== END 2018-06-13 13:14 | disposition home or self-care (01) | DRG 872 ==
LOC: INTOOBSV 14:37 → F1N 17:17 → OBSVTOIN 06-12 15:44
PROVIDERS: ADMIT Internal Medicine; ATTEND Internal Medicine
DX: R78.81 Bacteremia (principal); N39.0 Urinary tract infection, site not specified; N17.9 Acute kidney failure, unspecified; E85.81 Light chain (AL) amyloidosis; I13.0 Hypertensive heart and chronic kidney disease with heart failure and stage 1 through stage 4 chronic kidney disease, or unspecified chronic kidney disease; N18.4 Chronic kidney disease, stage 4 (severe); I50.9 Heart failure, unspecified; I48.0 Paroxysmal atrial fibrillation; B96.20 Unspecified Escherichia coli [E. coli] as the cause of diseases classified elsewhere; Z79.01 Long term (current) use of anticoagulants; G47.33 Obstructive sleep apnea (adult) (pediatric); E03.9 Hypothyroidism, unspecified; Z95.810 Presence of automatic (implantable) cardiac defibrillator
CPT/HCPCS: 82435-PO; 82565-PO; 82947-PO; 84132-PO; 84295-PO; 84520-PO; 85014-ER; 96374; G0378; J0456; J0696